=== PATIENT | male | born 1955 | race Two or more races ===

== ENCOUNTER 2024-12-21 05:32 | Inpatient (IN) | payer MEDICARE, OTHER ==
[~2024-12-21] VITALS: Ht 167.6 cm; Wt 71.5 kg
--- NOTE | 2024-12-21 05:46 | ED.PDOC ---
HPI Comments 69 year old male presents to the ED via EMS with a chief complaint of palpitations onset 1 day. Patient was transferred from [facility] due to elevated trop levels, was transferred for further cardiology workup. Patient states he had a triple bypass about 12 years ago. He began experiencing palpitations, sweats, HR was 155, went to [facility] ED. Was on a Heparin drip that was discontinued due to transportation. PMHx CHF. No other symptoms or modifying factors present at this time. Time Seen by MD: 05:40 Reviewed Notes: Medications, Allergies Allergies: Coded Allergies: NO KNOWN ALLERGIES (Unverified , 12/21/24) Information Source: Patient, Emergency Med Personnel Mode of Arrival: EMS Severity: Moderate Timing: Hours Duration: Since onset Prehospital treatment: None Onset: At Rest History of: Similar pain in past Modifying Factors: Nothing Associated Signs and Symptoms: Palpitations Past Medical History PAST MEDICAL HISTORY: CHF Surgical History: CABG Family History Family History: Reviewed,noncontributory to illness, No family hx of Cancer, No family hx of DM, No family hx of Heart aamir, No family hx of HTN, No family hx ofKidney aamir, No family hx of Liver aamir, No family hx of Lung aamir, No family hx of Stroke Social History Smoker: Non-Smoker Alcohol: Denies ETOH Use Drugs: Denies Drug Use Lives In: Home Constitutional: reports: sweats; denies: chills, diaphoresis, fatigue, fever, malaise, weakness, others EENTM: denies: blurred vision, double vision, ear bleeding, ear discharge, ear drainage, ear pain, ear ringing, eye pain, eye redness, hearing loss, mouth pain, mouth swelling, nasal discharge, nose bleeding, nose congestion, nose pain, photophobia, tearing, throat pain, throat swelling, voice changes, others Respiratory: denies: cough, hemoptysis, orthopnea, SOB at rest, shortness of breath, SOB with excertion, stridor, wheezing, others Cardiovascular: reports: others (tachycardia); denies: chest pain, dizzy spells, diaphoresis, Dyspnea on exertion, edema, irregular heart beat, left arm pain, lightheadedness, palpitations, PND, syncope Gastrointestinal: denies: abdomen distended, abdominal pain, blood streaked bowels, constipated, diarrhea, dysphagia, difficulty swallowing, hematemesis, melena, nausea, poor appetite, poor fluid intake, rectal bleeding, rectal pain, vomiting, others Genitourinary: denies: burning, dysuria, flank pain, frequency, hematuria, incontinence, penile discharge, penile sore, pain, testicle pain, testicle swelling, urgency, others Neurological: denies: dizziness, fainting, headache, left sided numbness, left sided weakness, numbness, paresthesia, pre-existing deficit, right sided numbness, right sided weakness, seizure, speech problems, tingling, tremors, weakness, others Musculoskeletal: denies: back pain, gout, joint pain, joint swelling, muscle pain, muscle stiffness, neck pain, others Integumetry: denies: bruises, change in color, change in hair/nails, dryness, laceration, lesions, lumps, rash, wounds, others Allergic/Immunocompromised: denies: Difficulty Healing, Frequent Infections, Hives, Itching, others Hematologic/Lymphatic: denies: anemia, blood clots, easy bleeding, easy bruising, swollen glands, others Endocrine: denies: excessive hunger, excessive sweating, excessive thirst, excessive urination, flushing, intolerance to cold, intolerance to heat, unexplained weight gain, unexplained weight loss, others Psychiatric: denies: anxiety, bipolar disorder, depression, hopeless, panic disorder, schizophrenia, sleepless, suicidal, others All Other Systems: Reviewed and Negative Physical Exam General Appearance: Normal HEENT: Normal ENT Inspection, Pharynx Normal, TMs Normal Neck: Full Range of Motion, Non-Tender, Normal, Normal Inspection Respiratory: Chest Non-Tender, Lungs Clear, No Accessory Muscle Use, No Respiratory Distress, Normal Breath Sounds Cardiovascular: No Edema, No JVD, No Murmur, No Gallop, Normal Peripheral Pulses, Regular Rate/Rhythm Breast Exam: Deferred Gastrointestinal: No Organomegaly, Non Tender, No Pulsatile Mass, Normal Bowel Sounds, Soft Genitalia: Deferred Pelvic: Deferred Rectal: Deferred Extremities: No calf tenderness, Normal capillary refill, Normal inspection, Normal range of motion, Non-tender, No pedal edema Musculoskeletal : Apperance: Normal Neurologic: Alert, edge drummer II-XII nml as Tested, No Motor Deficits, Normal Affect, Normal Mood, No Sensory Deficits Cerebellar Function: Normal Reflexes: Normal Skin: Dry, Normal Color, Warm Lymphatic: No Adenopathy Was a procedure done? Was a procedure done?: No CP Differential Dx Differential Diagnosis: MAT, [place], PAC's Differential Diagnosis: HTN Essential, HTN Accelerated Differential Diagnosis: Myocardial Infarction, Pericarditis X-Ray, Labs, Meds, VS Vital Signs Date Time Temp Pulse Resp B/P (MAP) Pulse Ox O2 Delivery O2 Flow Rate FiO2 12/21/24 08:00 98.1 84 19 121/70 (87) 99 98.1 12/21/24 08:00 84 19 97 Nasal Cannula* 2 28 12/21/24 07:00 87 11 121/70 (87) 98 12/21/24 06:41 87 12/21/24 06:22 91 12/21/24 06:11 91 12/21/24 05:55 93 15 96 Nasal Cannula* 2 28 12/21/24 05:55 98.3 91 15 128/78 (95) 96 98.3 12/21/24 05:50 98.9 88 18 106/70 91 98.9 12/21/24 05:32 87 Lab Test 12/21/24 07:32 12/21/24 06:17 Range/Units Troponin I High Sensitivity 3992 *H 3918 *H </=54 ng/L White Blood Count 12.2 H 4.4-10.8 10^3/uL Red Blood Count 4.26 L 4.5-5.90 10^6/uL Hemoglobin 12.9 L 13.5-17.5 g/dL Hematocrit 37.8 L 41.0-53.0 % Mean Corpuscular Volume 88.7 80.0-100.0 fL Mean Corpuscular Hemoglobin 30.2 28.0-32.0 pg Mean Corpuscular Hemoglobin Concent 34.0 32.0-36.0 g/dL Red Cell Distribution Width 14.7 H 11.8-14.3 % Platelet Count 353 140-450 10^3/uL Mean Platelet Volume 9.2 6.9-10.8 fL Neutrophils (%) (Auto) 73.3 37.0-80.0 % Lymphocytes (%) (Auto) 13.8 10.0-50.0 % Monocytes (%) (Auto) 8.5 0.0-12.0 % Eosinophils (%) (Auto) 3.7 0.0-7.0 % Basophils (%) (Auto) 0.7 0.0-2.0 % Neutrophils # (Auto) 8.9 H 1.6-8.6 10 ^3/uL Lymphocytes # (Auto) 1.7 0.4-5.4 10 ^3/uL Monocytes # (Auto) 1.0 0-1.3 10 ^3/uL Eosinophils # (Auto) 0.5 0-0.8 10 ^3/uL Basophils # (Auto) 0.1 0-0.2 10 ^3/uL Nucleated Red Blood Cells 0.0 % Prothrombin Time 11.8 9.3-11.8 sec Prothrombin Time INR 1.13 0.9-1.15 Activated Partial Thromboplast Time 29.5 24.5-34.5 SEC Sodium Level 136 136-145 mmol/L Potassium Level 3.9 3.5-5.1 mmol/L Chloride Level 104 98-107 mmol/L Carbon Dioxide Level 22 20-31 mmol/L Anion Gap 10 5-15 Blood Urea Nitrogen 24 H 9-23 mg/dL Creatinine 1.90 H 0.700-1.30 mg/dL Glomerular Filtration Rate Calc 38 >90 mL/min BUN/Creatinine Ratio 12.6 10.0-20.0 Serum Glucose 110 H 74-106 mg/dL Calcium Level 8.7 8.7-10.4 mg/dL Current Medications Medications (Trade) Dose Ordered Sig/Allyn Route Start Time Stop Time Status Last Admin Heparin Sodium/ Dextrose 250 ml @ 8 mls/hr Q24H IV 12/21/24 07:15 12/21/24 08:11 Time of 1ST Reevaluation: 06:10 Reevaluation 1ST: Unchanged Patient Education/Counseling: Diagnosis, Treatment, Prognosis Family Education/Counseling: No Family Present SEPSIS Sepsis Screen Physician Orders Chest Portable (12/21/24 05:42) Troponin-I Hs (12/21/24 08:42) Platelet Monitoring (12/21/24 07:05) Heparin Per Standardized Proce (12/21/24 07:05) Discontinue All Im Injections (12/21/24 07:05) Heparin Drip/D5w 100units/Ml (12/21/24 07:15) Stat Ekg For Chest Pain (12/21/24 07:05) Vital Signs Date Time Temp Pulse Resp B/P (MAP) Pulse Ox O2 Delivery O2 Flow Rate FiO2 12/21/24 08:00 98.1 84 19 121/70 (87) 99 98.1 12/21/24 08:00 84 19 97 Nasal Cannula* 2 28 12/21/24 07:00 87 11 121/70 (87) 98 12/21/24 06:41 87 12/21/24 06:22 91 12/21/24 06:11 91 12/21/24 05:55 93 15 96 Nasal Cannula* 2 28 12/21/24 05:55 98.3 91 15 128/78 (95) 96 98.3 12/21/24 05:50 98.9 88 18 106/70 91 98.9 12/21/24 05:32 87 Laboratory Tests Test 12/21/24 06:17 White Blood Count 12.2 10^3/uL (4.4-10.8) H Medications Medications Dose Ordered Sig/Allyn Route Start Time Stop Time Status Last Admin Dose Admin Heparin Sodium/ Dextrose 250 ml @ 8 mls/hr Q24H IV 12/21/24 07:15 12/21/24 08:11 Departure 1 Departure Time of Disposition: 08:51 (Patient presented with chest pain that was concerning for possible STEMI, ACS, PE, Pneumonia, Muscle Strain, COPD, Dissection. Data: 1. I ordered and reviewed the result of at least 3 labs including a CBC, BMP, and Troponin. 2. I independently interpreted the following tests: EKG which shows sinus arrhythmia and Chest X-ray which shows benign chest.Risk:This patient has a high risk of morbidity due to further diagnostic testing or treatment and may suffer from an acute cardiac or respiratory disorder. Workup reveals NSTEMI and patient should be admitted for further workup and possible expert consultation. ) Impression: Primary Impression: Palpitations Additional Impression: NSTEMI (non-ST elevated myocardial infarction) Disposition: ADMITTED INPATIENT Admit to: Tele Condition: Guarded Critical Care Note Critical Care Time?: Yes Critical care comment: NSTEMI Authorized and Performed by: Antonino Whitaker MD Total critical care time: Approximately 39 minutes Due to a high probability of clinically significant, life threatening deterioration, the patient required my highest level of preparedness to intervene emergently and I personally spent this critical care time directly and personally managing the patient. This critical care time included obtaining a history; examining the patient; pulse oximetry; ordering and review of studies; arranging urgent treatment with development of a management plan; evaluation of patient's response to treatment; frequent reassessment; and, discussions with other providers. This critical care time was performed to assess and manage the high probability of imminent, life-threatening deterioration that could result in multi-organ failure. It was exclusive of separately billable procedures and treating other patients and teaching time. Please see my other sections and the rest of the note for further information on patient assessment and treatment. Stability Stability form required: No Heart Score Heart Score: Heart Score Response (Comments) Value History Moderate Suspicious 1 EKG Repolarization Disturb 1 Age >65 2 Risk Factors >3 or Hx ASHD 2 Troponin >3 x's Normal limit 2 Total 8 I personally scribed for ANTONINO WHITAKER MD ([email or web address]) on 12/21/24 at 05:46. Electronically submitted by Isidra Locke ([email or web address]). ANTONINO WHITAKER MD Dec 21, 2024 05:46
[2024-12-21 05:55] VITALS: PULSE 93; RESP 15; O2SAT 96
[2024-12-21 06:45] LABS: Hematocrit 37.8 % (41.0-53.0); Hemoglobin 12.9 g/dL (13.5-17.5); Mean Corpuscular Hemoglobin 30.2 pg (28.0-32.0); Mean Corpuscular Volume 88.7 fL (80.0-100.0); Nucleated Red Blood Cells % 0.0 %
--- NOTE | 2024-12-21 06:52 | ECG ---
[facility] Test Date: 2024-12-21 Test Time: 06:41:22 Pat Name: KLEBER MATHUR Department: [facility] ED Room: 0277T Gender: M Consultant Electronics: ANGELICA : 1955 Requested By: ANTONINO PARKER Order Number: [id number] Reading MD: Cy Lopez Measurements Intervals [place] Rate: 87 P: 45 MT: 178 QRS: 114 QRSD: 140 T: -46 QT: 412 QTc: 496 Interpretive Statements Sinus rhythm Multiple premature complexes, vent & supraven Left atrial enlargement Nonspecific intraventricular conduction delay Anteroseptal infarct, old Minimal ST depression Electronically Signed On 12-22-2024 17:02:27 PDT by Cy Lopez Please click the below link to view image of tracing.
--- NOTE | 2024-12-21 06:52 | ECG ---
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
--- NOTE | 2024-12-21 06:52 | ECG ---
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
[2024-12-21 06:53] LABS: Chloride 104 mmol/L (98-107); Potassium 3.9 mmol/L (3.5-5.1)
[2024-12-21 06:54] LABS: Anion Gap 10 (5-15); Calcium 8.7 mg/dL (8.7-10.4); Carbon Dioxide 22 mmol/L (20-31)
[2024-12-21 06:59] LABS: BUN/Creatinine Ratio 12.6 (10.0-20.0)
[2024-12-21 07:03] LABS: Glucose 110 mg/dL (74-106); Sodium 136 mmol/L (136-145)
--- NOTE | 2024-12-21 07:03 | DVH ---
CHEST RADIOGRAPH Indication: cp Technique: Single frontal view of the chest was obtained Comparison: XR CHEST 1 VIEW on DOS: 12/20/24 FINDINGS: Lines and Tubes: None Lungs: Bilateral interstitial prominence. No focal consolidation. Pleura: No effusion. No pneumothorax. Cardiomediastinal contours: Cardiomegaly. Bones: Age-indeterminate left clavicular fracture. No acute osseous abnormality. Status post median sternotomy. IMPRESSION: 1. Pulmonary vascular congestion. 2. Cardiomegaly.
[2024-12-21 07:05] LABS: Blood Urea Nitrogen 24 mg/dL (9-23); INR 1.13 (0.9-1.15); Partial Thromboplastin Time 29.5 SEC (24.5-34.5); Prothrombin Time 11.8 sec (9.3-11.8)
[2024-12-21 08:00] VITALS: PULSE 84; RESP 19; O2SAT 97
[2024-12-21] MEDS: HEPARIN DRIP/D5W 100UNITS/ML 250 ML IV SCH ×3 (08:11→23:07)
[2024-12-21] MEDS: ONDANSETRON HCL 4 MG/2 ML VIAL IV ONE (09:28)
[2024-12-21] MEDS: MORPHINE SULFATE 4 MG/ML SYR/VIAL IV ONE (09:28)
[2024-12-21] MEDS ORDERED: MET25T PO (10:37)
[2024-12-21] MEDS ORDERED: LISI20TA56 PO (10:37)
[2024-12-21] MEDS ORDERED: FURO20TA4 PO (10:37)
[2024-12-21] MEDS ORDERED: ALBUAER3 INH (10:37)
[2024-12-21] MEDS ORDERED: NICO14DI29 TOP (10:37)
[2024-12-21] MEDS ORDERED: ALLO100T PO (10:37)
[2024-12-21] MEDS ORDERED: DOCUSATE SOD 100 MG CAP PO PRN (10:45)
[2024-12-21] MEDS ORDERED: HYDROcodone-ACET 5/325MG TAB PO PRN (10:45)
[2024-12-21] MEDS ORDERED: NITROGLYCERIN 0.4 MG SL TAB SL PRN (10:45)
[2024-12-21] MEDS ORDERED: MORPHINE SULFATE INJ 2 MG/ml SYRG IV PRN (10:45)
[2024-12-21] MEDS ORDERED: ONDANSETRON HCL 4 MG/2 ML VIAL IV PRN (10:45)
[2024-12-21] MEDS ORDERED: ACETAMINOPHEN 325 MG TAB PO PRN (10:45)
--- NOTE | 2024-12-21 11:26 | DVHHP2 ---
History of Present Illness Reason for Visit: Elevated troponin History of Present Illness Micha Palacios is a 69-year-old male with past medical history of CHF, hypertension, COPD, gout, and open heart surgery about 12 years ago, who was transferred here from [facility] due to elevated troponin, possible NSTEMI. Patient states he was at home when he became diaphoretic, had chest tightness, and pain that radiating to his left arm. He put his home pulse oximeter on and saw that his heart rate was in the 140s. He then took his blood pressure and it showed his heart rate in the 150's prompting him to go to the hospital. While at [facility] his troponin came back elevated prompting them to transfer him here for higher level of care. Cardiovascular: CAD, HTN, hyperipidemia Past Surgical History: Appendectomy, CABG, Other (tumor removal from neck) Smoke: <1 pack per day (trying to quite, wearing a nicotine patch) ALCOHOL: none Drugs: None Lives: with Family Domestic Violence: Neg Review of Systems Constitutional: Yes: Sweats, Weakness; No: Fever, Chills, Malaise, Other Eyes: No: Pain, Vision change, Conjunctivae inflammation, Eyelid inflammation, Other, Redness ENT: No: Ear pain, Ear discharge, Nose pain, Nose discharge, Nose congestion, Mouth pain, Mouth swelling, Throat pain, Throat swelling, Other Respiratory: No: Cough, Dry, Shortness of breath, SOB with excertion, Wheezing, Hemoptysis, Pleuritic Pain, Sputum, Wheezing, Other Cardiovascular: Chest Pain (tightness that radiated to left arm), Palpitations; No: Orthopnea, Paroxysmal Noc. Dyspnea, Edema, Lt Headedness, Other Gastrointestinal: No: Nausea, Vomiting, Abdominal Pain, Diarrhea, Constipation, Melena, Hematochezia, Other Genitourinary: No Dysuria, No Frequency, No Incontinence, No Hematuria, No Retention, No Other Musculoskeletal: No: other, neck pain, shoulder pain, arm pain, back pain, hand pain, leg pain, foot pain Skin: No: Rash, Lesions, Jaundice, Bruising, Other Neurological: No: Weakness, Numbness, Incoordination, Change in speech, Confusion, Seizures, Other Allergies: Coded Allergies: NO KNOWN ALLERGIES (Unverified , 12/21/24) Medications Current Medications Medications Dose Ordered Sig/Allyn Route Start Time Stop Time Status Last Admin Dose Admin Heparin Sodium/ Dextrose 250 ml @ 8 mls/hr Q24H IV 12/21/24 07:15 12/21/24 08:11 8 MLS/HR Sodium Chloride 1,000 ml @ 75 mls/hr [id number] IV 12/21/24 10:45 UNV Acetaminophen/ Hydrocodone Bitart 1 tab Q4HP PRN PO 12/21/24 10:45 UNV Ondansetron HCl 4 mg Q4HP PRN IV 12/21/24 10:45 UNV Docusate Sodium 100 mg BIDPRN PRN PO 12/21/24 10:45 UNV Acetaminophen 650 mg Q6HP PRN PO 12/21/24 10:45 UNV Nitroglycerin 0.4 mg Q5MINP PRN SL 12/21/24 10:45 UNV Morphine Sulfate 2 mg Q30M PRN IV 12/21/24 10:45 UNV Exam Vital Signs Vital Signs Date Time Temp Pulse Resp B/P (MAP) Pulse Ox O2 Delivery O2 Flow Rate FiO2 12/21/24 09:28 90 18 123/103 12/21/24 08:00 98.1 99 98.1 12/21/24 08:00 Nasal Cannula* 2 28 General Appearance: Alert, Oriented X3, Cooperative, mild distress HEENT: Atraumatic, PERRLA Respiratory: Clear to auscultation, Normal air movement Abdominal: Normal bowel sounds, No hepatospenomegaly Extremities: No clubbing, No cyanosis, No edema, Normal pulses, No tenderness/swelling Skin: No rashes, No breakdown, No significant lesion Neuro: Normal gait, Normal speech, Strength at 5/5 X4 ext, Normal tone Psych/Mental Status: Mental status NL, Mood NL Labs/Xrays Labs Test 12/21/24 09:12 12/21/24 06:17 Range/Units Troponin I High Sensitivity 3495 *H </=54 ng/L White Blood Count 12.2 H 4.4-10.8 10^3/uL Red Blood Count 4.26 L 4.5-5.90 10^6/uL Hemoglobin 12.9 L 13.5-17.5 g/dL Hematocrit 37.8 L 41.0-53.0 % Mean Corpuscular Volume 88.7 80.0-100.0 fL Mean Corpuscular Hemoglobin 30.2 28.0-32.0 pg Mean Corpuscular Hemoglobin Concent 34.0 32.0-36.0 g/dL Red Cell Distribution Width 14.7 H 11.8-14.3 % Platelet Count 353 140-450 10^3/uL Mean Platelet Volume 9.2 6.9-10.8 fL Neutrophils (%) (Auto) 73.3 37.0-80.0 % Lymphocytes (%) (Auto) 13.8 10.0-50.0 % Monocytes (%) (Auto) 8.5 0.0-12.0 % Eosinophils (%) (Auto) 3.7 0.0-7.0 % Basophils (%) (Auto) 0.7 0.0-2.0 % Neutrophils # (Auto) 8.9 H 1.6-8.6 10 ^3/uL Lymphocytes # (Auto) 1.7 0.4-5.4 10 ^3/uL Monocytes # (Auto) 1.0 0-1.3 10 ^3/uL Eosinophils # (Auto) 0.5 0-0.8 10 ^3/uL Basophils # (Auto) 0.1 0-0.2 10 ^3/uL Nucleated Red Blood Cells 0.0 % Prothrombin Time 11.8 9.3-11.8 sec Prothrombin Time INR 1.13 0.9-1.15 Activated Partial Thromboplast Time 29.5 24.5-34.5 SEC Sodium Level 136 136-145 mmol/L Potassium Level 3.9 3.5-5.1 mmol/L Chloride Level 104 98-107 mmol/L Carbon Dioxide Level 22 20-31 mmol/L Anion Gap 10 5-15 Blood Urea Nitrogen 24 H 9-23 mg/dL Creatinine 1.90 H 0.700-1.30 mg/dL Glomerular Filtration Rate Calc 38 >90 mL/min BUN/Creatinine Ratio 12.6 10.0-20.0 Serum Glucose 110 H 74-106 mg/dL Calcium Level 8.7 8.7-10.4 mg/dL CHEST RADIOGRAPH FINDINGS: Lines and Tubes: None Lungs: Bilateral interstitial prominence. No focal consolidation. Pleura: No effusion. No pneumothorax. Cardiomediastinal contours: Cardiomegaly. Bones: Age-indeterminate left clavicular fracture. No acute osseous abnormality. Status post median sternotomy. IMPRESSION: 1. Pulmonary vascular congestion. 2. Cardiomegaly. SEPSIS Sepsis Screen Date sepsis recognized/suspect: Dec 21, 2024 Time Sepsis recognized/suspect: 08 Recent Procedure: No On Antibiotic Therapy: Yes Respiratory Rate >20: No Heart Rate >90: No Temp<36 C (96.8 F) or >38.3 C: No SBP <90 or MAP <65 mmHG: No New Acute Mental Status Change: No Is the patient on CPAP, BIPAP,: No Physician Orders Chest Portable (12/21/24 05:42) Platelet Monitoring (12/21/24 07:05) Heparin Per Standardized Proce (12/21/24 07:05) Discontinue All Im Injections (12/21/24 07:05) Heparin Drip/D5w 100units/Ml (12/21/24 07:15) Stat Ekg For Chest Pain (12/21/24 07:05) PTPTT (12/21/24 14:15) * Cardiology Consult (12/21/24 09:58) Admit (12/21/24 10:33) Code Status (12/21/24 10:33) Sodium Chloride 0.9% (12/21/24 10:45) Hydrocodone-Acet 5/325mg Tab (Mentone 5/32 (12/21/24 10:45) Ondansetron Hcl (Zofran) (12/21/24 10:45) Docusate Sodium Capsule (Colace Capsule) (12/21/24 10:45) Complete Blood Count (12/22/24 04:00) Comprehensive Metabolic Panel (12/22/24 04:00) Npo (Nothing By Mouth) Diet (12/21/24 Lunch) Echo 2d Mode Cardiac Dop (12/21/24 10:33) Condition: Critical (12/21/24 10:33) Acetaminophen Tablet (Tylenol Tablet) (12/21/24 10:45) Nitroglycerin Sublingual (Ntrostat Subli (12/21/24 10:45) Morphine Sulfate Injection (12/21/24 10:45) Notify Md Of Changes From Base (12/21/24 10:33) Exchange Consultant For 24 Hours (12/21/24 10:33) Emergency Dysrhythmia Protocol (12/21/24 10:33) Rhythm Strips Once Every Shift (12/21/24 10:33) Oxygen By Nasal Cannula (12/21/24 10:33) Vital Signs Date Time Temp Pulse Resp B/P (MAP) Pulse Ox O2 Delivery O2 Flow Rate FiO2 12/21/24 09:28 90 18 123/103 12/21/24 08:00 87 12/21/24 08:00 98.1 84 19 121/70 (87) 99 98.1 12/21/24 08:00 84 19 97 Nasal Cannula* 2 28 12/21/24 07:00 87 11 121/70 (87) 98 12/21/24 06:41 87 12/21/24 06:22 91 12/21/24 06:11 91 12/21/24 05:55 93 15 96 Nasal Cannula* 2 28 12/21/24 05:55 98.3 91 15 128/78 (95) 96 98.3 12/21/24 05:50 98.9 88 18 106/70 91 98.9 12/21/24 05:32 87 Laboratory Tests Test 12/21/24 06:17 White Blood Count 12.2 10^3/uL (4.4-10.8) H Medications Medications Dose Ordered Sig/Allyn Route Start Time Stop Time Status Last Admin Dose Admin Heparin Sodium/ Dextrose 250 ml @ 8 mls/hr Q24H IV 12/21/24 07:15 12/21/24 08:11 8 MLS/HR Morphine Sulfate 4 mg ONCE ONCE IV 12/21/24 08:45 12/21/24 08:46 DC 12/21/24 09:28 4 MG Ondansetron HCl 4 mg ONCE ONCE IV 12/21/24 08:45 12/21/24 08:46 DC 12/21/24 09:28 4 MG Assessment/Plan Assessment/Plan Assessment: NSTEMI (non-ST elevated myocardial infarction), Elevated troponin, Palpitations, Dehydration, Acute kidney injury, Hypertension, Gout, COPD, Plan: Admit to Tele, Cardiology consult, ECHO, Heparin drip, Lipid panel, A1c, TSH, ASA, Patient refuses statin, Home medications reconciled, Plan discussed with: Patient My Orders Orders - SUKHDEV WHIPPLE Procedure Category Date Status Time * Cardiology Consult CONS 12/21/24 Transmitted 09:58 Admit ADMIT 12/21/24 Transmitted 10:33 Code Status CODE 12/21/24 Transmitted 10:33 Sodium Chloride 0.9% PHA 12/21/24 Logged 10:45 Hydrocodone-Acet PHA 12/21/24 Logged 5/325mg Tab (Mentone 10:45 Ondansetron Hcl PHA 12/21/24 Logged (Zofran) 10:45 Docusate Sodium PHA 12/21/24 Logged Capsule (Colace 10:45 Complete Blood Count LAB 12/22/24 Verified 04:00 Comprehensive LAB 12/22/24 Verified Metabolic Panel 04:00 Npo (Nothing By DIET 12/21/24 Transmitted Mouth) Diet Lunch Echo 2d Mode Cardiac US 12/21/24 Logged DOP 10:33 Condition: Critical [facility] 12/21/24 In Process 10:33 Acetaminophen Tablet PHA 12/21/24 Logged (Tylenol Tablet) 10:45 Nitroglycerin PHA 12/21/24 Logged Sublingual (Ntrostat 10:45 Morphine Sulfate PHA 12/21/24 Logged Injection 10:45 Notify Md Of Changes KELSI 12/21/24 In Process From Base 10:33 Exchange Consultant For [facility] 12/21/24 In Process 24 Hours 10:33 Emergency Dysrhythmia [facility] 12/21/24 In Process Protocol 10:33 Rhythm Strips Once [facility] 12/21/24 In Process Every Shift 10:33 Oxygen By Nasal RT 12/21/24 Transmitted Cannula 10:33 Date of Service: Dec 21, 2024 Billing Provider: SUKHDEV WHIPPLE Common Visit Codes: [id number] INP/OBS CARE (HIGH) SUKHDEV WHIPPLE Dec 21, 2024 11:26
[2024-12-21 12:05] LABS: Triglycerides 121 mg/dL (< 150)
--- NOTE | 2024-12-21 12:06 | DVHINCON2 ---
Date of service: Dec 21, 2024 History of Present Illness HPI Patient is 69 year old male who was transferred from [facility] for abnormal troponin. He started feeling palpitation that did not resolve on itself and presented to [facility]. Denies any chest pain. While in [facility], Troponin (regular type) increased from 1.33 to 2.56. His EKG over there revealed tachyarrhythmia (SVT with Abberancy Vs V-tach). In [facility], BNP was at 831, Creat was 2.2, Na was 129 and WBC was 12.9. It is of note that he was in [facility] (hospital) at end of November for Bowel obstruction / Diverticulitis. [facility] abnormal Trop[facility]. While in [facility] at end of November, Echocardiogram of 12/14/2024 revealed LVEF of 20%, severely dilated LV and reduced RV systolic function. In December 16 ([facility] admission), Creat was 1.66 (down from 2.21) and GFR was 44 (up from 31). Home Meds Reported Medications Allopurinol (Allopurinol) 100 Mg Tab, 1 TAB PO DAILY 12/21/24 Nicotine (Nicotine Transdermal Syst) 14 Mg/24 Hr Dis, 1 PATCH TOP DAILY 12/21/24 Metoprolol Tartrate (Lopressor) 25 Mg Tb, 25 MG PO BID 12/21/24 Albuterol Sulfate (VENTOLIN MDI) 90 Mcg Ih, INH 12/21/24 Furosemide (Furosemide) 20 Mg Tab, 1 TAB PO DAILY 12/21/24 Lisinopril (Lisinopril) 20 Mg Tab, 1 TAB PO BID 12/21/24 Past Medical History Others PMH includes: CAD, s/p CABG (over 10 years ago), Systolic CHF, COPD/Emphysema, DM, hypertension, Hyperlipidemia, CKD, PVD and history of non-compliance. He is active cigarette smoker. Does have recent diagnosis of Bowel Obstruction/Diverticulitis. Past Surgical History: CABG Smoker: Positive Alocohol: None Lives with: With family Review of Systems Constitutional: No symptom reported Ears, Nose, & Throat: No symptom reported Pulmonary/Respiratory: Dyspnea Cardiovascular: Palpitations All Other Systems 14 point review of system was performed. Relevant findings as per above and as per HPI. Otherwise, negative H&P Exam Vital Signs Vital Signs Date Time Temp Pulse Resp B/P (MAP) Pulse Ox O2 Delivery O2 Flow Rate FiO2 12/21/24 10:40 88 15 114/64 12/21/24 08:00 98.1 99 98.1 12/21/24 08:00 Nasal Cannula* 2 28 General Appeara: Well developed Eye Exam: bilateral eye PERRL Mouth: Normal Inspection Pulmonary/Respiratory: Rhonci Cardiovascular/Chest: Normal inspection, Regular rate, Systolic murmur Abdominal Exam: Normal bowel sounds, Soft, No tenderness Neuro/Mental St: Alert, Oriented Appearance: Appropriate appearance Eye contact/ Speech: Cooperative Labs/Xrays Labs Test 12/21/24 09:12 12/21/24 06:17 Range/Units Troponin I High Sensitivity 3495 *H </=54 ng/L Thyroid Stimulating Hormone (TSH) 2.85 0.55-4.78 uIU/mL White Blood Count 12.2 H 4.4-10.8 10^3/uL Red Blood Count 4.26 L 4.5-5.90 10^6/uL Hemoglobin 12.9 L 13.5-17.5 g/dL Hematocrit 37.8 L 41.0-53.0 % Mean Corpuscular Volume 88.7 80.0-100.0 fL Mean Corpuscular Hemoglobin 30.2 28.0-32.0 pg Mean Corpuscular Hemoglobin Concent 34.0 32.0-36.0 g/dL Red Cell Distribution Width 14.7 H 11.8-14.3 % Platelet Count 353 140-450 10^3/uL Mean Platelet Volume 9.2 6.9-10.8 fL Neutrophils (%) (Auto) 73.3 37.0-80.0 % Lymphocytes (%) (Auto) 13.8 10.0-50.0 % Monocytes (%) (Auto) 8.5 0.0-12.0 % Eosinophils (%) (Auto) 3.7 0.0-7.0 % Basophils (%) (Auto) 0.7 0.0-2.0 % Neutrophils # (Auto) 8.9 H 1.6-8.6 10 ^3/uL Lymphocytes # (Auto) 1.7 0.4-5.4 10 ^3/uL Monocytes # (Auto) 1.0 0-1.3 10 ^3/uL Eosinophils # (Auto) 0.5 0-0.8 10 ^3/uL Basophils # (Auto) 0.1 0-0.2 10 ^3/uL Nucleated Red Blood Cells 0.0 % Prothrombin Time 11.8 9.3-11.8 sec Prothrombin Time INR 1.13 0.9-1.15 Activated Partial Thromboplast Time 29.5 24.5-34.5 SEC Sodium Level 136 136-145 mmol/L Potassium Level 3.9 3.5-5.1 mmol/L Chloride Level 104 98-107 mmol/L Carbon Dioxide Level 22 20-31 mmol/L Anion Gap 10 5-15 Blood Urea Nitrogen 24 H 9-23 mg/dL Creatinine 1.90 H 0.700-1.30 mg/dL Glomerular Filtration Rate Calc 38 >90 mL/min BUN/Creatinine Ratio 12.6 10.0-20.0 Serum Glucose 110 H 74-106 mg/dL Hemoglobin A1c < 3.8 <5.7 % A1C Calcium Level 8.7 8.7-10.4 mg/dL Assessment/Plan Plan Patient is 69 year old male who was transferred from [facility] for abnormal troponin. He started feeling palpitation that did not resolve on itself and presented to [facility]. Denies any chest pain. While in [facility], Troponin (regular type) increased from 1.33 to 2.56. His EKG over there revealed tachyarrhythmia (SVT with Abberancy Vs V-tach). In [facility], BNP was at 831, Creat was 2.2, Na was 129 and WBC was 12.9. It is of note that he was in [facility] (hospital) at end of November for Bowel obstruction / Diverticulitis. [facility] abnormal Trop[facility]. While in [facility] at end of November, Echocardiogram of 12/14/2024 revealed LVEF of 20%, severely dilated LV and reduced RV systolic function. In December 16 ([facility] admission), Creat was 1.66 (down from 2.21) and GFR was 44 (up from 31). Not in acute distress, No JVD, pink mucosa, no Goiter, no Carotid Bruit, not using accessory muscles of breathing. Lungs are clear in auscultation. Cardiac: RR, systolic murmur: 3 out of 6 in apex, positive S3 gallop, no Hepatomegaly, BS is positive, no abdominal tenderness, no mass. No peripheral edema. I could not feel femoral pulses bilaterally, pink and warm bilateral lower ext PMH includes: CAD, s/p CABG (over 10 years ago), Systolic CHF, COPD/Emphysema, DM, hypertension, Hyperlipidemia, CKD, PVD and history of non-compliance. He is active cigarette smoker. Does have recent diagnosis of Bowel Obstruction/Diverticulitis. Echocardiogram (performed in office) of revealed severely reduced left ventricular systolic function and mild valvular regurgitations. Echocardiogram of 12/14/2024 (performed in [facility]) revealed LVEF of 20%, severely dilated LV and reduced RV systolic function WBC: 12.2 Hgb: 12.9 Creat: 1.85 - 1.90 K: 4.9 - 3.9 Trop (high sensitive): 3586 - 3918 - 3992 - 3495 BNP: 1193.40 - 960.28 TSH: 2.85 LDL: 61 chest xry revealed: IMPRESSION: 1. Pulmonary vascular congestion. 2. Cardiomegaly. Renal Ultrasound revealed: IMPRESSION: Multiple echogenic foci in the left kidney measures up to 0.4 cm suggestive of left renal stones. Echogenic bilateral kidneys suggestive of chronic medical renal disease. No hydronephrosis. EKG: NSR, IVCD, Poor R wave progression, LAE and PVCs Tele revealed sinus rhythm with occasion of NSVT Patient is 69 year old male who was transferred from [facility] for abnormal trop. Originally presented to [facility] for palpitation. High sensitive trop peaked at 3992. Did have Tachyarrhythmia in [place] (SVT with Abberancy Vs NSVT: images more compatible with SVT) which could have contributed to clinical picture. Does have history of CAD and has had CABG before. Does have history of systolic heart failure. Did not have chest pains. Could it have been demand physiology in patient with systolic heart failure? Could it be demand physiology in patient with tachyarrhythmia? Still, the Troponin peak has been large enough that type 1 physiology is also very likely. Usually in such presentation with above risk factors and history (CAD, s/p CABG), ischemic work up (cardiac catheterization) is considered. Cardiac Catheterization was offered to patient. It is true that patient does have baseline CKD and risk of Cardiac cath to adversely affect kidneys in patients with baseline CKD is more, still, recognizing co-morbidities and risk factors, benefit of ischemic work up is considered more than the risks. Patient verbalized understanding the above (he sounds very well versed with medical terminology also and was asking about his actual troponin number, troponin peak, his creat number, his GFR) and the risks involved with proceeding with or holding off cardiac catheterization. Risks, benefits and alternatives were discussed in detail. At this point, he refused the offer of Cardiac Cath and mentioned that he really is concerned about his kidney function. Does have history of PAD, Emphysema/COPD, DM, hypertension, Hyperlipidemia and non-compliance. Tachyarrhythmia NSVT SVT Abnormal trop Non-stemi CKD CAD s/p CABG PAD DM Active cigarette smoker Hypertension Hyperlipidemia Kidney stone Cardiac suggestion for management: Manage in Tele Follow up electrolytes and kidney function test and correct abnormalities Heparin Drip ASA High potency statin Serial Troponin Echocardiogram Beta-trevor (Metoprolol tartrate at 25 mg TID) Amiodarone Bladder ultrasound U/A Nephrology consultation Further evaluation and management as per above and clinical course Thank you for consultation. A total of 75 minutes was spent reviewing the patient record, examining the patient, making a diagnostic and therapeutic plan, discussing this plan with medical personnel, following up on diagnostic studies and following the patient for clinical stability excluding any and all procedures. At least 50% of this time was spent in direct, [id number] contact. Thank you for allowing me to participate in this patient's care. Further recommendations will depend on patient's clinical course. Please do not hesitate to contact me if you have any questions or concerns. This medical document was created using electronic medical record system with [employer] computerized dictation system. Although this document has been carefully reviewed, there may still be some phonetic and typographical errors. These areas are purely typographical due to the imperfection of the software programs, and do not reflect any compromise in the patient's medical care. Plan discussed with: Patient, Other (nurse) NATALIA STEVENSON MD Dec 21, 2024 12:06
[2024-12-21 12:07] LABS: Cholesterol 107 mg/dL (< 200)
[2024-12-21 12:39] LABS: HDL Cholesterol 20 mg/dL (40-59)
[2024-12-21 13:15] LABS: Alanine Aminotransferase 12 U/L (7-40); Alkaline Phosphatase 89 U/L (46-116); Anion Gap 7 (5-15); BUN/Creatinine Ratio 15.7 (10.0-20.0); Calcium 9.1 mg/dL (8.7-10.4); Carbon Dioxide 26 mmol/L (20-31); Chloride 104 mmol/L (98-107); Potassium 4.9 mmol/L (3.5-5.1); Sodium 137 mmol/L (136-145); Total Protein 6.4 g/dL (5.7-8.2)
[2024-12-21 13:16] LABS: Albumin 4.0 g/dL (3.2-4.8)
[2024-12-21 13:17] LABS: Bilirubin, Total 0.3 mg/dL (0.2-1.0)
[2024-12-21 13:34] LABS: Blood Urea Nitrogen 29 mg/dL (9-23); Glucose 140 mg/dL (74-106)
[2024-12-21] MEDS: SODIUM CHLORIDE 0.9% 1,000 ML IV SCH (13:42)
[2024-12-21] MEDS: METOPROLOL TARTRATE 25 MG TAB PO SCH (14:00)
--- NOTE | 2024-12-21 14:16 | DVH ---
INDICATION: Pain TECHNIQUE: Multiple real-time sonographic images of the kidneys and bladder were obtained. COMPARISON: None FINDINGS: The right kidney measures 9 cm in length, which is normal in size. There is increased echog enicity of the right kidney. No hydronephrosis. The left kidney measures 9.7 cm in length, which is normal in size. There is increased echogenicity o f the left kidney. No hydronephrosis. Multiple echogenic foci in the left kidney measures up to 0.4 c m suggestive of left renal stones. No large intraluminal masses are seen in the bladder. Prior to voiding the bladder volume measures vo lume 452 cc. IMPRESSION: Multiple echogenic foci in the left kidney measures up to 0.4 cm suggestive of left renal stones. Ech ogenic bilateral kidneys suggestive of chronic medical renal disease. No hydronephrosis.
[2024-12-21 14:28] LABS: INR 1.08 (0.9-1.15); Partial Thromboplastin Time 29.8 SEC (24.5-34.5); Prothrombin Time 11.4 sec (9.3-11.8)
[2024-12-21] MEDS: HEPARIN SODIUM (PORCINE) 5000 UNITS/ML 1ML VIAL IV ONE ×2 (15:38→23:05)
[2024-12-21] MEDS: NICOTINE 14 MG/24HR TOPICAL PATCH TD SCH (15:58)
[2024-12-21] MEDS: NICOTINE 14 MG/24HR TOPICAL PATCH TD ONE (16:00)
--- NOTE | 2024-12-21 16:23 | CONS ---
Pharmacy Clinical Information: HEPARIN DRIP PER RX PROTOCOL SPOKE TO RN JULY REGARDING TO HEPARIN DRIP RATE CHANGE CURRENT HEPARIN DRIP RATE 800 UNITS/HR CURRENT aPTT: 29.8 ON 12/21/2024 AT 14:05 BOLUS: 5000 UNITS IVP X1 INCREASE HEPARIN DRIP RATE (NEW RATE) 1100 UNITS/HR DATE AND TIME NEW RATE STARTED: 12/21/2024 AT 15:41 NEXT aPTT: 12/21/2024 AT 2145 RN JULY READ BACK NEW DOSE: 1100 UNITS/HR KIRBY Busby Dec 21, 2024 16:23
--- NOTE | 2024-12-21 16:59 | DVHCONRES ---
Date Seen: Dec 21, 2024 Resident Creating Document: FRANCES CARTAGENA RESIDENT History of Present Illness 69-year-old male patient and past medical history of CHF, hypertension, CKD, unknown baseline function presented as he was transferred here from [facility] due to elevated troponin, possible NSTEMI. Patient states he was at home when he became diaphoretic, had chest tightness, and pain that radiating to his left arm. He put his home pulse oximeter on and saw that his heart rate was in the 140s. On presenting to the ER, cardiology was consulted and patient refused left heart catheterization as recommended by driller multiple spindle. Patient had elevated creatinine levels and Nephrology was consulted for HIRAL. Patient mentioned that his baseline GFR was 65 seven years ago but does not remember the current GFR. Patient was told by one of the doctors to drink more fluids which patient has been drinking. Patient mentioned that he does not take any antiplatelet therapy including aspirin and Plavix. Patient is currently on oxygen at 2 L nasal cannula. Past medical history CHF, hypertension, CKD, unknown baseline function Past surgical history CABG Medication history Lisinopril Metoprolol Atorvastatin Allergic history No known allergies Past Medical History As described in the HPI Past Surgical History As described in the HPI Social History current smoker Allergies: Coded Allergies: NO KNOWN ALLERGIES (Unverified , 12/21/24) Home Meds Reported Medications Allopurinol (Allopurinol) 100 Mg Tab, 1 TAB PO DAILY 12/21/24 Nicotine (Nicotine Transdermal Syst) 14 Mg/24 Hr Dis, 1 PATCH TOP DAILY 12/21/24 Metoprolol Tartrate (Lopressor) 25 Mg Tb, 25 MG PO BID 12/21/24 Albuterol Sulfate (VENTOLIN MDI) 90 Mcg Ih, INH 12/21/24 Furosemide (Furosemide) 20 Mg Tab, 1 TAB PO DAILY 12/21/24 Lisinopril (Lisinopril) 20 Mg Tab, 1 TAB PO BID 12/21/24 Current Medications Current Medications Medications (Trade) Dose Ordered Sig/Allyn Route PRN Reason Start Time Stop Time Status Last Admin Heparin Sodium/ Dextrose 250 ml @ 8 mls/hr Q24H IV 12/21/24 07:15 12/21/24 15:25 DC 12/21/24 08:11 Sodium Chloride 1,000 ml @ 75 mls/hr [id number] IV 12/21/24 10:45 12/21/24 14:34 DC Acetaminophen/ Hydrocodone Bitart ([place] 5/325MG Tab) 1 tab Q4HP PRN PO MODERATE PAIN (4-6 PAIN SCALE) 12/21/24 10:45 Ondansetron HCl (Zofran) 4 mg Q4HP PRN IV NAUSEA / VOMITING 12/21/24 10:45 Docusate Sodium (Colace Capsule) 100 mg BIDPRN PRN PO FOR CONSTIPATION 12/21/24 10:45 Acetaminophen (Tylenol Tablet) 650 mg Q6HP PRN PO PAIN SCALE 1-3 OR TEMP>100.4 12/21/24 10:45 Nitroglycerin (Ntrostat Sublingual) 0.4 mg Q5MINP PRN SL FOR CHEST PAIN 12/21/24 10:45 Morphine Sulfate 2 mg Q30M PRN IV FOR CHEST PAIN 12/21/24 10:45 Allopurinol (Zyloprim Tablet) 100 mg DAILY PO 12/22/24 10:00 Furosemide (Lasix Tablet) 20 mg DAILY PO 12/22/24 10:00 12/21/24 14:34 DC Lisinopril (Zestril Tablet) 20 mg BID PO 12/21/24 22:00 12/21/24 14:34 DC Metoprolol Tartrate (Lopressor Tablet) 25 mg BID PO 12/21/24 22:00 Cancel Nicotine (Nicoderm 14MG/ 24HR) 1 patch DAILY TD 12/22/24 10:00 12/21/24 15:58 Aspirin 81 mg DAILY PO 12/22/24 10:00 Amiodarone HCl (Cordarone Tablet) 200 mg Q12HR PO 12/21/24 22:00 UNV Aspirin 81 mg DAILY PO 12/22/24 10:00 UNV Atorvastatin Calcium (Lipitor) 80 mg HS PO 12/21/24 22:00 Metoprolol Tartrate (Lopressor Tablet) 25 mg TID PO 12/21/24 14:00 Amiodarone HCl (Cordarone Tablet) 200 mg BID PO 12/21/24 22:00 Furosemide (Lasix Injection) 40 mg BIDD IV 12/21/24 18:00 Heparin Sodium/ Dextrose 250 ml @ 11 mls/hr [id number] IV 12/21/24 15:30 12/21/24 15:41 Review of Systems As described in the HPI Vital Signs Vital Signs Date Time Temp Pulse Resp B/P (MAP) Pulse Ox O2 Delivery O2 Flow Rate FiO2 12/21/24 16:30 Nasal Cannula* 2 28 12/21/24 16:30 83 13 106/59 (75) 94 12/21/24 08:00 98.1 98.1 Physical Exam Examination General Appearance: Alert, Oriented X3, Cooperative, No acute distress, on oxygen 2 L nasal cannula HEENT: EOMI Respiratory: Clear to auscultation, Normal air movement Cardiovascular: Regular rate, Normal S1, Normal S2, bilateral crackles, scattered wheezing, pedal edema Abdominal: Normal bowel sounds Extremities: No cyanosis, No edema, Normal pulses, No tenderness/swelling Skin: No rashes, No breakdown Neuro: Normal gait, Normal speech, Strength at 5/5 X4 ext, Normal tone, Sensation intact, Cranial nerves 3-12 NL, Reflexes 2+ Psych/Mental Status: Mental status NL, Mood NL Labs/Diagnostic Data Labs Test 12/21/24 14:05 12/21/24 09:12 12/21/24 06:17 12/21/24 00:00 Range/Units Prothrombin Time 11.4 9.3-11.8 sec Prothrombin Time INR 1.08 0.9-1.15 Activated Partial Thromboplast Time 29.8 24.5-34.5 SEC Troponin I High Sensitivity 3495 *H </=54 ng/L Triglycerides Level 121 < 150 mg/dL Cholesterol Level 107 < 200 mg/dL LDL Cholesterol 61 < 100 mg/dL HDL Cholesterol 20 L 40-59 mg/dL Thyroid Stimulating Hormone (TSH) 2.85 0.55-4.78 uIU/mL White Blood Count 12.2 H 4.4-10.8 10^3/uL Red Blood Count 4.26 L 4.5-5.90 10^6/uL Hemoglobin 12.9 L 13.5-17.5 g/dL Hematocrit 37.8 L 41.0-53.0 % Mean Corpuscular Volume 88.7 80.0-100.0 fL Mean Corpuscular Hemoglobin 30.2 28.0-32.0 pg Mean Corpuscular Hemoglobin Concent 34.0 32.0-36.0 g/dL Red Cell Distribution Width 14.7 H 11.8-14.3 % Platelet Count 353 140-450 10^3/uL Mean Platelet Volume 9.2 6.9-10.8 fL Neutrophils (%) (Auto) 73.3 37.0-80.0 % Lymphocytes (%) (Auto) 13.8 10.0-50.0 % Monocytes (%) (Auto) 8.5 0.0-12.0 % Eosinophils (%) (Auto) 3.7 0.0-7.0 % Basophils (%) (Auto) 0.7 0.0-2.0 % Neutrophils # (Auto) 8.9 H 1.6-8.6 10 ^3/uL Lymphocytes # (Auto) 1.7 0.4-5.4 10 ^3/uL Monocytes # (Auto) 1.0 0-1.3 10 ^3/uL Eosinophils # (Auto) 0.5 0-0.8 10 ^3/uL Basophils # (Auto) 0.1 0-0.2 10 ^3/uL Nucleated Red Blood Cells 0.0 % Sodium Level 136 136-145 mmol/L Potassium Level 3.9 3.5-5.1 mmol/L Chloride Level 104 98-107 mmol/L Carbon Dioxide Level 22 20-31 mmol/L Anion Gap 10 5-15 Blood Urea Nitrogen 24 H 9-23 mg/dL Creatinine 1.90 H 0.700-1.30 mg/dL Glomerular Filtration Rate Calc 38 >90 mL/min BUN/Creatinine Ratio 12.6 10.0-20.0 Serum Glucose 110 H 74-106 mg/dL Hemoglobin A1c < 3.8 <5.7 % A1C Calcium Level 8.7 8.7-10.4 mg/dL B-Type Natriuretic Peptide 960.28 0-100 pg/mL Total Bilirubin 0.3 0.2-1.0 mg/dL Aspartate Amino Transferase (AST) 35 13-40 U/L Alanine Aminotransferase (ALT) 12 7-40 U/L Alkaline Phosphatase 89 46-116 U/L Total Protein 6.4 5.7-8.2 g/dL Albumin 4.0 3.2-4.8 g/dL Assessment Assessment / Plan # HIRAL on CKD, hemodynamically mediated , likely due to CHF exacerbation, ?com ponent of bladder outlet obstruction -Renal USG : Multiple echogenic foci in the left kidney measures up to 0.4 cm suggestive of left renal stones. Echogenic bilateral kidneys suggestive of chronic medical renal disease. No hydronephrosis. -unknown baseline kidney function # BPH # left Renal stone # NSTEMI # Acute HfrEF Exacerbation # Constipation # Diverticular disease # hypertension # COPD # gout # CAD s/p CABG Plan/Recommendation Plan Monitor Kidney Function, and electrolytes Strict I and O urine studies ordered, including urine sodium, urine creatinine, urine prot/creatinine ration Insert Salazar catheter if Bladder residual volume post voiding is > 180ml , for component of MARC causing HIRAL Discontinued IV fluids, will start on diuresis with IV Lasix 40mg BID as patient is volume overloaded. hold SACHIN-/ARB and other nephrotoxic agents pt mentioned he has not been on any antiplatelet therapy for a long time and did not want LHC done in the hospital and neither wants any medical therapy for NSTEMI/CAD pt was explained in detail about risk of contrast induced nephropathy including possible need for HD post procedure, risks/benefits of Left heart Catheterization, risk of worsening kidney function if pt does not opt for either LHC or medical therapy. pt mentioned that he wants to do his own research before taking any decision. continue Management of NSTEMI as per Cardiology. pt would need outpatient follow up with Nephrology after discharge Case discussion with Dr Martin. Plan discussed with: Patient, Other ADDENDUM ADDENDUM Agree with resident assessment We had extensive discussion with patient and family at bedside we discussed his lack of medical followup and noncompliance with medications particularly cardiac meds. We discussed his risk of contrast induced nephropathy. Upon eval risk was mod- high risk. We discussed following cardiology recommendations to optimize his condition. Patient is some medical knowledge based on independent research and is mistrustful of pharmaceuticals. Plan as follows PVR, flomax lasix IV, no IVF heparin drip if GFR improved above 35% then ischemic w/u benefits are better than renal risks FRANCES CARTAGENA RESIDENT Dec 21, 2024 16:59 LLUVIA MARTIN MD Dec 22, 2024 08:58
--- NOTE | 2024-12-21 17:47 | DVH ---
EXAM: US BLADDER DATE OF SERVICE: 12/21/2024 05:14 PM ORDERING PHYSICIAN: SUKHDEV WHIPPLE REASON FOR EXAM: abnormal kidney function, kidney stone TECHNIQUE: Ultrasound of the bladder was performed. COMPARISON: US KIDNEY on DOS: 12/21/24, CT ABDOMEN PELVIS WITHOUT on DOS: 09/07/24, CT ABDOMEN PELVIS WI TH on DOS: 01/31/22 FINDINGS: The bladder volume of 683 ml. No focal wall thickening is seen. There is no intraluminal mass or sto ne. IMPRESSION: Distended bladder with volume = 683ML End of Report
[2024-12-21 17:59] VITALS: RESP 18; O2SAT 94
[2024-12-21 18:01] VITALS: BP 126/70; PULSE 88; RESP 18; TEMP 98.1; O2SAT 92
[2024-12-21] MEDS: FUROSEMIDE 40 MG/4 ML VIAL IV SCH (18:52)
[2024-12-21 20:30] VITALS: PULSE 87; RESP 18; O2SAT 94
[2024-12-21 21:00] VITALS: BP 122/59; PULSE 89; RESP 17; TEMP 98; O2SAT 94
[2024-12-21] MEDS: AMIODARONE HCL 200 MG TAB PO SCH (22:00)
[2024-12-21] MEDS ORDERED: AMIODARONE HCL 200 MG TAB PO SCH (22:00)
[2024-12-21] MEDS ORDERED: LISINOPRIL 20 MG TAB PO SCH (22:00)
[2024-12-21] MEDS ORDERED: METOPROLOL TARTRATE 25 MG TAB PO SCH (22:00)
[2024-12-21] MEDS: ATORVASTATIN 20 MG TAB PO SCH (22:00)
[2024-12-21 22:31] LABS: INR 1.11 (0.9-1.15); Partial Thromboplastin Time 33.5 SEC (24.5-34.5); Prothrombin Time 11.6 sec (9.3-11.8)
[2024-12-22 03:02] LABS: Urine Protein, UAD Negative (Negative)
[2024-12-22 04:14] LABS: Protein, Urine 8.7 mg/dL (1-14)
[2024-12-22 06:51] LABS: Hematocrit 38.1 % (41.0-53.0); Hemoglobin 12.7 g/dL (13.5-17.5); Mean Corpuscular Hemoglobin 30.0 pg (28.0-32.0); Mean Corpuscular Volume 89.7 fL (80.0-100.0); Nucleated Red Blood Cells % 0.0 %
[2024-12-22 07:00] LABS: Alkaline Phosphatase 75 U/L (46-116); Anion Gap 8 (5-15); BUN/Creatinine Ratio 14.9 (10.0-20.0); Carbon Dioxide 25 mmol/L (20-31); Chloride 107 mmol/L (98-107); Glucose 106 mg/dL (74-106); Magnesium 2.0 mg/dL (1.6-2.6); Potassium 3.9 mmol/L (3.5-5.1); Sodium 140 mmol/L (136-145); Total Protein 5.8 g/dL (5.7-8.2)
[2024-12-22 07:01] LABS: Albumin 3.5 g/dL (3.2-4.8)
[2024-12-22 07:02] LABS: Alanine Aminotransferase < 9 U/L (7-40); Bilirubin, Total 0.3 mg/dL (0.2-1.0); Blood Urea Nitrogen 25 mg/dL (9-23); Calcium 8.6 mg/dL (8.7-10.4)
[2024-12-22 07:09] LABS: INR 1.13 (0.9-1.15); Prothrombin Time 11.8 sec (9.3-11.8)
[2024-12-22 07:13] LABS: Partial Thromboplastin Time 100.2 SEC (24.5-34.5)
--- NOTE | 2024-12-22 07:51 | DVHSR ---
APPROVED REPORT EXAM: Two-dimensional and M-mode echocardiogram with Doppler and color Doppler. Blood Pressure: 123/103 mmHg INDICATION NSTEMI Surgery/Intervention CABG: RISK FACTORS Height: 5' 5", Weight: 149 DIMENSIONS LVDd6.8 (3.8-5.7cm)LA (2D)4.4 (1.9-4.0cm)Aortic Root3.5 (2.0-3.7cm) LVDs6.7 (2.5-4.0cm)LA (MM) (1.9-4.0cm)Aortic Cusp Exc1.3 (1.5-2.0cm) EF (%) 5.0 (55-70%)Rt. Atrium4.6 (1.9-4.0cm)Asc. Aorta cm IVSd1.1 (0.7-1.1cm)RV (D) (1.8-2.4cm) PWd1.0 (0.7-1.1cm) Mitral Valve MitralMitral Stenosis E wave1.20m/sMV Mean GR.mmHg A wave0.70m/sMV Peak GR.mmHg E/A ratio1.72D MVAcm2 Aortic Valve Aortic ValveAortic Stenosis V10.40m/Selvin Mean GR.5mmHg V21.60m/Selvin Peak GR.10mmHg LVOT Diameter2.3 (1.8-2.4cm)Doppler AVA1.04cm2 AI P 1/2 Pltg060.98ms Pulmonic Valve V20.40m/s Conclusion Four-chamber dilatation was observed. Left ventricle: Left ventricle was dilated with reduced systolic function. LVEF was 5-10%. Diffuse hypokinesis with regional variation was observed. Pseudo normal left ventricular diastolic function was observed. Right ventricle was dilated with reduced systolic function. Both atria were dilated. Aortic valve: Aortic valve was not well visualized. Mild aortic insufficiency was seen. There was aortic sclerosis with no stenosis. There was trace mitral/tricuspid regurgitation. Pulmonary valve was not well visualized. As there was no good tricuspid regurgitation jet, right ventricular systolic pressure could not be es timated. There was no pericardial effusion. IVC was dilated.
[2024-12-22 08:00] VITALS: PULSE 91; PULSE 96; RESP 18; O2SAT 92
--- NOTE | 2024-12-22 08:14 | DVHPN2 ---
Progress Note - Dictate Date Seen: Dec 22, 2024 Medical Necessity Reason Pt with a Central, PICC or Fol: No vital signs Vital Sign Date Time Temp Pulse Resp B/P (MAP) Pulse Ox O2 Delivery O2 Flow Rate FiO2 12/21/24 22:00 89 122/59 12/21/24 21:00 98.0 17 94 98.0 12/21/24 20:30 Nasal Cannula* 2 28 Total Intake and Output 12/21/24 12/21/24 12/22/24 15:00 23:00 07:00 Intake Total 8 ml 1238 ml Output Total 1140 ml Balance 8 ml 98 ml medications Current Medications Medications Dose Ordered Sig/Allyn Route Start Time Stop Time Status Last Admin Dose Admin Acetaminophen/ Hydrocodone Bitart 1 tab Q4HP PRN PO 12/21/24 10:45 Ondansetron HCl 4 mg Q4HP PRN IV 12/21/24 10:45 Docusate Sodium 100 mg BIDPRN PRN PO 12/21/24 10:45 Acetaminophen 650 mg Q6HP PRN PO 12/21/24 10:45 Nitroglycerin 0.4 mg Q5MINP PRN SL 12/21/24 10:45 Morphine Sulfate 2 mg Q30M PRN IV 12/21/24 10:45 Allopurinol 100 mg DAILY PO 12/22/24 10:00 Metoprolol Tartrate 25 mg BID PO 12/21/24 22:00 Cancel Nicotine 1 patch DAILY TD 12/22/24 10:00 12/21/24 15:58 1 PATCH Aspirin 81 mg DAILY PO 12/22/24 10:00 Amiodarone HCl 200 mg Q12HR PO 12/21/24 22:00 UNV Aspirin 81 mg DAILY PO 12/22/24 10:00 UNV Atorvastatin Calcium 80 mg HS PO 12/21/24 22:00 Metoprolol Tartrate 25 mg TID PO 12/21/24 14:00 Amiodarone HCl 200 mg BID PO 12/21/24 22:00 Furosemide 40 mg BIDD IV 12/21/24 18:00 12/21/24 18:52 40 MG Heparin Sodium/ Dextrose 250 ml @ 14 mls/hr [id number] IV 12/21/24 23:00 12/21/24 23:07 14 MLS/HR laboratory and microbiology Laboratory Tests 12/22/24 05:16 Test 12/22/24 05:16 Range/Units Serum Glucose 106 74-106 mg/dL Assessment/Plan Patient is refusing left heart cath, Life Vest, ICD, Heparin, Carvedilol, Aldactone ( at bedside) Patient is 69 year old male who was transferred from [facility] for abnormal troponin. He started feeling palpitation that did not resolve on itself and presented to [facility]. Denies any chest pain. While in [facility], Troponin (regular type) increased from 1.33 to 2.56. His EKG over there revealed tachyarrhythmia (SVT with Abberancy Vs V-tach). In [facility], BNP was at 831, Creat was 2.2, Na was 129 and WBC was 12.9. It is of note that he was in [facility] (hospital) at end of November for Bowel obstruction / Diverticulitis. He is transferred to [facility] for abnormal Troponin. While in [facility] at end of November, Echocardiogram of 12/14/2024 revealed LVEF of 20%, severely dilated LV and reduced RV systolic function. In December 16 ([facility] admission), Creat was 1.66 (down from 2.21) and GFR was 44 (up from 31). Not in acute distress, No JVD, pink mucosa, no Goiter, no Carotid Bruit, not using accessory muscles of breathing. Lungs are clear in auscultation. Cardiac: RR, systolic murmur: 3 out of 6 in apex, positive S3 gallop, no Hepatomegaly, BS is positive, no abdominal tenderness, no mass. No peripheral edema. I could not feel femoral pulses bilaterally, pink and warm bilateral lower ext PMH includes: CAD, s/p CABG (over 10 years ago), Systolic CHF, COPD/Emphysema, DM, hypertension, Hyperlipidemia, CKD, PVD and history of non-compliance. He is active cigarette smoker. Does have recent diagnosis of Bowel Obstruction/Diverticulitis. Echocardiogram (performed in office) of revealed severely reduced left ventricular systolic function and mild valvular regurgitations. Echocardiogram of 12/14/2024 (performed in [facility]) revealed LVEF of 20%, severely dilated LV and reduced RV systolic function WBC: 12.2 - 13.8 Hgb: 12.9 - 12.7 Creat: 1.90 - 1.85 - 1.68 K: 3.9 - 4.9 - 3.9 Trop (high sensitive): 3918 - 3992 - 3495 - 3586 - 2754 - 6418 - 3286 BNP: 960.28 - 1193.40 TSH: 2.85 LDL: 61 U/A: non-revealing chest xry revealed: IMPRESSION: 1. Pulmonary vascular congestion. 2. Cardiomegaly. Renal Ultrasound revealed: IMPRESSION: Multiple echogenic foci in the left kidney measures up to 0.4 cm suggestive of left renal stones. Echogenic bilateral kidneys suggestive of chronic medical renal disease. No hydronephrosis. Bladder Ultrasound revealed: The bladder volume of 683 ml. No focal wall thickening is seen. There is no intraluminal mass or stone. IMPRESSION: Distended bladder with volume = 683ML EKG: NSR, IVCD, Poor R wave progression, LAE and PVCs Tele revealed sinus rhythm with occasion of NSVT Echocardiogram revealed: Four-chamber dilatation was observed. Left ventricle: Left ventricle was dilated with reduced systolic function. LVEF was 5-10%. Diffuse hypokinesis with regional variation was observed. Pseudo normal left ventricular diastolic function was observed. Right ventricle was dilated with reduced systolic function. Both atria were dilated. Aortic valve: Aortic valve was not well visualized. Mild aortic insufficiency was seen. There was aortic sclerosis with no stenosis. There was trace mitral/tricuspid regurgitation. Pulmonary valve was not well visualized. As there was no good tricuspid regurgitation jet, right ventricular systolic pressure could not be estimated. There was no pericardial effusion. IVC was dilated. Patient is 69 year old male who was transferred from [facility] for abnormal trop. Originally presented to [facility] for palpitation. High sensitive trop peaked at 3992. Did have Tachyarrhythmia in [place] (SVT with Abberancy Vs NSVT: images more compatible with SVT) which could have contributed to clinical picture. Does have history of CAD and has had CABG before. Does have history of systolic heart failure. Did not have chest pains. Could it have been demand physiology in patient with systolic heart failure? Could it be demand physiology in patient with tachyarrhythmia? Still, the Troponin peak has been large enough that type 1 physiology is also very likely. Usually in such presentation with above risk factors and history (CAD, s/p CABG), ischemic work up (cardiac catheterization) is considered. Cardiac Catheterization was offered to patient. It is true that patient does have baseline CKD and risk of Cardiac cath to adversely affect kidneys in patients with baseline CKD is more, still, recognizing co-morbidities and risk factors, benefit of ischemic work up is considered more than the risks. Patient verbalized understanding the above (he sounds very well versed with medical terminology also and was asking about his actual troponin number, troponin peak, his creat number, his GFR) and the risks involved with proceeding with or holding off cardiac catheterization. Risks, benefits and alternatives were discussed in detail. At this point, he refused the offer of Cardiac Cath and mentioned that he really is concerned about his kidney function. Does have history of PAD, Emphysema/COPD, DM, hypertension, Hyperlipidemia and non-compliance. Is seen and being followed by Nephrology. Echo revealed systolic heart failure (patient has history of it from before also). Patient is refusing LHC, Life vest, adjustment to medications. Risks were explained, he verbalized understanding ( at bedside) Tachyarrhythmia NSVT SVT Abnormal trop Non-stemi CKD CAD s/p CABG Systolic Heart failure, h/o PAD DM Active cigarette smoker Hypertension Hyperlipidemia Kidney stone non-compliant Cardiac suggestion for management: Manage in Tele Diuresis as per Nephrology Follow up electrolytes and kidney function test and correct abnormalities Change Heparin drip to Lovenox (if patient agrees) ASA High potency statin (if patient agrees) Beta-trevor (Metoprolol Succinate: 50 mg daily: if patient agrees) Amiodarone GDMT for systolic heart failure (as per Nephrology will avoid SACHIN/ARB and Nephrotoxic agents) Patient refused Life Vest and even 'later: ICD' Spirinolactone: 12.5 mg daily if patient agrees Patient is refusing different medications and suggested procedures (LHC/Life vest). Mentions understanding the risks ( at bedside) Nephrology follow up Further evaluation and management as per above and clinical course A total of 55 minutes was spent reviewing the patient record, examining the patient, making a diagnostic and therapeutic plan, discussing this plan with medical personnel, following up on diagnostic studies and following the patient for clinical stability excluding any and all procedures. At least 50% of this time was spent in direct, [id number] contact. Thank you for allowing me to participate in this patient's care. Further recommendations will depend on patient's clinical course. Please do not hesitate to contact me if you have any questions or concerns. This medical document was created using electronic medical record system with [employer] computerized dictation system. Although this document has been carefully reviewed, there may still be some phonetic and typographical errors. These areas are purely typographical due to the imperfection of the software programs, and do not reflect any compromise in the patient's medical care. Plan discussed with: Patient, Spouse (at bedise), Other (nurse) NATALIA STEVENSON MD Dec 22, 2024 08:14
[2024-12-22 08:35] VITALS: BP 105/64; PULSE 91; RESP 18; TEMP 98.4; O2SAT 92
[2024-12-22] MEDS: HEPARIN DRIP/D5W 100UNITS/ML 250 ML IV SCH ×2 (08:45→22:37)
[2024-12-22] MEDS: SPIRONOLACTONE 25 MG TAB PO SCH (10:00)
[2024-12-22] MEDS: ALLOPURINOL 100 MG TAB PO SCH (10:00)
[2024-12-22] MEDS: ENOXAPARIN SOD 80 MG/0.8ML SYRINGE SC SCH (10:00)
[2024-12-22] MEDS ORDERED: FUROSEMIDE 20 MG TAB PO SCH (10:00)
[2024-12-22] MEDS: CIPROFLOXACIN HYDROCHLORIDE 250 MG TAB PO SCH (10:22)
[2024-12-22] MEDS: metroNIDAZOLE 500 MG TAB PO SCH (10:23)
[2024-12-22] MEDS: METOPROLOL SUCCINATE XL 50 MG TAB PO SCH (10:24)
--- NOTE | 2024-12-22 10:29 | DVHPN2 ---
Progress Note Date Seen: Dec 22, 2024 Resident Creating Document: FRANCES CARTAGENA RESIDENT Medical Necessity Reason Pt with a Central, PICC or Fol: No Subjective Review of Systems History of Present Illness 69-year-old male patient and past medical history of CHF, hypertension, CKD, unknown baseline function presented as he was transferred here from [facility] due to elevated troponin, possible NSTEMI. Patient states he was at home when he became diaphoretic, had chest tightness, and pain that radiating to his left arm. He put his home pulse oximeter on and saw that his heart rate was in the 140s. On presenting to the ER, cardiology was consulted and patient refused left heart catheterization as recommended by network contract manager. Patient had elevated creatinine levels and Nephrology was consulted for HIRAL. Patient mentioned that his baseline GFR was 65 seven years ago but does not remember the current GFR. Patient was told by one of the doctors to drink more fluids which patient has been drinking. Patient mentioned that he does not take any antiplatelet therapy including aspirin and Plavix. Patient is currently on oxygen at 2 L nasal cannula. Past medical history CHF, hypertension, CKD, unknown baseline function Past surgical history CABG Medication history Lisinopril Metoprolol Atorvastatin Allergic history No known allergies Past Medical History As described in the HPI Past Surgical History As described in the HPI Social History current smoker Interval Events 12/22/24 pt seen and examined at bedside on home 02 mentioned no active complaints Patient is actively refusing medications: heparin drip, amiodarone, and Lovenox. Patient also refusing angiogram suggested by the network contract manager Objective vital signs Vital Sign Date Time Temp Pulse Resp B/P (MAP) Pulse Ox O2 Delivery O2 Flow Rate FiO2 12/22/24 10:24 91 105/64 12/22/24 08:35 98.4 18 92 98.4 12/21/24 20:30 Nasal Cannula* 2 28 Total Intake and Output 12/21/24 12/21/24 12/22/24 15:00 23:00 07:00 Intake Total 8 ml 1238 ml Output Total 1140 ml Balance 8 ml 98 ml medications Current Medications Medications Dose Ordered Sig/Allyn Route Start Time Stop Time Status Last Admin Dose Admin Acetaminophen/ Hydrocodone Bitart 1 tab Q4HP PRN PO 12/21/24 10:45 Ondansetron HCl 4 mg Q4HP PRN IV 12/21/24 10:45 Docusate Sodium 100 mg BIDPRN PRN PO 12/21/24 10:45 Acetaminophen 650 mg Q6HP PRN PO 12/21/24 10:45 Nitroglycerin 0.4 mg Q5MINP PRN SL 12/21/24 10:45 Morphine Sulfate 2 mg Q30M PRN IV 12/21/24 10:45 Allopurinol 100 mg DAILY PO 12/22/24 10:00 Metoprolol Tartrate 25 mg BID PO 12/21/24 22:00 Cancel Nicotine 1 patch DAILY TD 12/22/24 10:00 12/22/24 10:23 1 PATCH Aspirin 81 mg DAILY PO 12/22/24 10:00 12/22/24 10:24 81 MG Amiodarone HCl 200 mg Q12HR PO 12/21/24 22:00 UNV Aspirin 81 mg DAILY PO 12/22/24 10:00 UNV Atorvastatin Calcium 80 mg HS PO 12/21/24 22:00 Amiodarone HCl 200 mg BID PO 12/21/24 22:00 Furosemide 40 mg BIDD IV 12/21/24 18:00 12/21/24 18:52 40 MG Heparin Sodium/ Dextrose 250 ml @ 11 mls/hr [id number] IV 12/22/24 08:45 Metoprolol Succinate 50 mg DAILY PO 12/22/24 10:00 12/22/24 10:24 50 MG Enoxaparin Sodium 70 mg DAILY SC 12/22/24 10:00 Spironolactone 12.5 mg DAILY PO 12/22/24 10:00 Metronidazole 500 mg TID PO 12/22/24 09:30 12/22/24 10:23 500 MG Ciprofloxacin 250 mg BID PO 12/22/24 10:00 12/22/24 10:22 250 MG Examination Examination General Appearance: Alert, Oriented X3, Cooperative, No acute distress, on oxygen 2 L nasal cannula HEENT: EOMI Respiratory: Clear to auscultation, Normal air movement Cardiovascular: Regular rate, Normal S1, Normal S2, bilateral crackles, scattered wheezing, pedal edema Abdominal: Normal bowel sounds Extremities: No cyanosis, No edema, Normal pulses, No tenderness/swelling Skin: No rashes, No breakdown Neuro: Normal gait, Normal speech, Strength at 5/5 X4 ext, Normal tone, Sensation intact, Cranial nerves 3-12 NL, Reflexes 2+ Psych/Mental Status: Mental status NL, Mood NL laboratory and microbiology Laboratory Tests 12/22/24 05:16 Test 12/22/24 05:16 Range/Units Serum Glucose 106 74-106 mg/dL Labs and/or images reviewed: Labs reviewed by me, Image(s) reviewed by me Problem List/Assessment/Plan Problem List/Assessment/Plan Assessment / Plan # HIRAL on CKD, hemodynamically mediated , likely due to CHF exacerbation, ?component of bladder outlet obstruction -Renal USG : Multiple echogenic foci in the left kidney measures up to 0.4 cm suggestive of left renal stones. Echogenic bilateral kidneys suggestive of chronic medical renal disease. No hydronephrosis. -unknown baseline kidney function -creatinine improved from 1.85 to 1.68 Input/Output 1246/1140 with a net positive of 106 ml FeNa-5.7% Urine protein/creat 0.21 # BPH # left Renal stone # NSTEMI # Acute HfrEF Exacerbation # Constipation # Diverticular disease # hypertension # COPD # Gout # CAD s/p CABG Plan Monitor Kidney Function, and electrolytes Strict I and O urine studies ordered, including urine sodium, urine creatinine, urine Prot/creatinine ration Insert Salazar catheter if Bladder residual volume post voiding is > 180ml, for component of MARC causing Acute kidney Injury Continue diuresis with IV Lasix 40mg BID as patient is volume overloaded. hold SACHIN-/ARB and other nephrotoxic agents As per yesterday discussion, pt mentioned he has not been on any antiplatelet therapy for a long time and did not want LHC done in the hospital and neither wants any medical therapy for NSTEMI/CAD pt was explained in detail about risk of contrast induced nephropathy including possible need for HD post procedure, risks/benefits of Left heart Catheterization, risk of worsening kidney function if pt does not opt for either LHC or medical therapy. pt mentioned that he wants to do his own research before taking any decision. today again, pt was explained about the improvement in kidney function and lower risk of worsening kidney compared to yesterday if patient decides for LHC pt was also explained about the risk of refusing the heparin drip in details. pt and family at bedside fully understood the risk and still refused Patient got aggressive during the conversation and was using abusive words. will start the patient on Colace 100mg BID for constipation. continue Management of NSTEMI as per Cardiology. pt would need outpatient follow up with Nephrology after discharge Case discussion with Dr Martin. Plan discussed with: Patient, Other My Orders My Orders Orders - FRANCES CARTAGENA Procedure Category Date Status Time Document Fluid Input [facility] 12/21/24 In Process And Outpu 13:25 Communication Order ORDERS 12/21/24 Transmitted 18:53 Total Time (mins): 33 ADDENDUM ADDENDUM and son at bedside patient again was hostile cursing and using aggressive language renal function improved slightly discussed in detail renal risk stratification and optimal time for [facility] patient has declined interventions outlined by cardiology at this time renal recommendations are to transition to oral diuretics tomorrow and rec patient takes cardiac meds patient is high risk for adverse cardiac events due to medical noncompliance FRANCES CARTAGENA Dec 22, 2024 10:29 LLUVIA MARTIN MD Dec 22, 2024 21:40
[2024-12-22 13:20] VITALS: BP 115/76; PULSE 80; RESP 16; TEMP 98; O2SAT 98
--- NOTE | 2024-12-22 15:33 | CONS ---
Pharmacy Clinical Information: HEPARIN DRIP PER PRX PROTOCOL Spoke to Rosemary regarding this patient at start of shift. Pt has been refusing Heparin since the APTT results were reported from the 0516 draw. APTT from the 0516 draw was 100.2. Hold heparin for 1 hour, then reduce rate by 300 units per hour to 1100 units per hour (11 mL/hr) per PRX protocol. Pt agreed to resume heparin at 1525, per DYLAN Riley, so drip to resume at 1100 units per hour as specified above at 1525. Rate confirmed by DYLAN Riley. APTT scheduled for 12/22/2024 @ [facility]. MIKE CISNEROS PHARMACIST Dec 22, 2024 15:33
--- NOTE | 2024-12-22 16:09 | DVHPN2 ---
Progress Note Date Seen: Dec 22, 2024 Medical Necessity Reason Pt with a Central, PICC or Fol: No Subjective Patient reports: No new complaints Review of Systems: HEENT:Normal, CVS:Normal, RESPIRATORY:Normal, GI:Normal, :Normal, MSK:Normal, NEURO:Normal Objective vital signs Vital Sign Date Time Temp Pulse Resp B/P (MAP) Pulse Ox O2 Delivery O2 Flow Rate FiO2 12/22/24 13:20 98.0 80 16 115/76 (89) 98 98.0 12/22/24 08:00 Nasal Cannula* 2 28 Total Intake and Output 12/21/24 12/21/24 12/22/24 15:00 23:00 07:00 Intake Total 8 ml 1238 ml Output Total 1140 ml Balance 8 ml 98 ml medications Current Medications Medications Dose Ordered Sig/Allyn Route Start Time Stop Time Status Last Admin Dose Admin Acetaminophen/ Hydrocodone Bitart 1 tab Q4HP PRN PO 12/21/24 10:45 Ondansetron HCl 4 mg Q4HP PRN IV 12/21/24 10:45 Docusate Sodium 100 mg BIDPRN PRN PO 12/21/24 10:45 Acetaminophen 650 mg Q6HP PRN PO 12/21/24 10:45 Nitroglycerin 0.4 mg Q5MINP PRN SL 12/21/24 10:45 Morphine Sulfate 2 mg Q30M PRN IV 12/21/24 10:45 Allopurinol 100 mg DAILY PO 12/22/24 10:00 12/22/24 10:00 100 MG Metoprolol Tartrate 25 mg BID PO 12/21/24 22:00 Cancel Nicotine 1 patch DAILY TD 12/22/24 10:00 12/22/24 10:23 1 PATCH Aspirin 81 mg DAILY PO 12/22/24 10:00 12/22/24 10:24 81 MG Amiodarone HCl 200 mg Q12HR PO 12/21/24 22:00 UNV Aspirin 81 mg DAILY PO 12/22/24 10:00 UNV Atorvastatin Calcium 80 mg HS PO 12/21/24 22:00 Amiodarone HCl 200 mg BID PO 12/21/24 22:00 12/22/24 10:00 200 MG Heparin Sodium/ Dextrose 250 ml @ 11 mls/hr [id number] IV 12/22/24 08:45 12/22/24 08:45 11 MLS/HR Metoprolol Succinate 50 mg DAILY PO 12/22/24 10:00 12/22/24 10:24 50 MG Enoxaparin Sodium 70 mg DAILY SC 12/22/24 10:00 12/22/24 10:00 70 MG Spironolactone 12.5 mg DAILY PO 12/22/24 10:00 12/22/24 10:00 12.5 MG Metronidazole 500 mg TID PO 12/22/24 09:30 12/22/24 13:41 500 MG Ciprofloxacin 250 mg BID PO 12/22/24 10:00 12/22/24 10:22 250 MG Furosemide 40 mg DAILY IV 12/23/24 10:00 Examination: GENERAL:Normal, HEENT:Normal, NECK:Normal, LUNGS:Normal, LUNGS:Abnormal (on oxygen, rales), CVS:Normal, ABDOMEN:Normal, MSK:Normal, SKIN:Normal, NEURO:Normal, :Normal laboratory and microbiology Laboratory Tests 12/22/24 05:16 Test 12/22/24 05:16 Range/Units Serum Glucose 106 74-106 mg/dL Problem List/Assessment/Plan Problem List/Assessment/Plan #1 acute resp failure: cont oxygen #2 acute systolic heart failure: lasix iv #3 acute mi: refused mi, iv heparin #4 htn #5 hyperlipidemia #6 copd #7 svt #8 ckd stage 3 #9 renal stones #10 tobacco abuse- nicotine patch, advised to quit- time spent 11 mins #11 cad s/p cabg #12 pvd advance care planning- full code- time spent 19 mins Plan discussed with: Patient, Spouse My Orders My Orders Orders - RAMIREZ DOW MD Procedure Category Date Status Time * Tax Adjuster CONS 12/22/24 Transmitted Consult Pt Request For Service PT 12/22/24 Transmitted 16:00 Basic Metabolic Panel LAB 12/23/24 Verified 06:00 Complete Blood Count LAB 12/23/24 Verified 06:00 Date of Service: Dec 22, 2024 Billing Provider: RAMIREZ DOW MD Common Visit Codes: 36561-[id number] INP/OBS CARE(HIGH) Secondary Visit Codes: 99014-SLXBA CHNG SMOKING >10MIN, 20971-[id number] CARE PLAN 30 MINUTES RAMIREZ DOW MD Dec 22, 2024 16:09
[2024-12-22 16:42] VITALS: BP 112/74; PULSE 75; RESP 16; TEMP 98.2; O2SAT 95
[2024-12-22] MEDS: DOCUSATE SOD 100 MG CAP PO ONE (19:24)
[2024-12-22 20:00] VITALS: PULSE 74; PULSE 78; RESP 18; O2SAT 96
[2024-12-22 21:00] VITALS: BP 115/67; PULSE 79; RESP 17; TEMP 98.3; O2SAT 98
[2024-12-22] MEDS: DOCUSATE SOD 100 MG CAP PO SCH (21:42)
[2024-12-22 21:54] LABS: INR 1.09 (0.9-1.15); Partial Thromboplastin Time 36.9 SEC (24.5-34.5); Prothrombin Time 11.5 sec (9.3-11.8)
[2024-12-23 01:00] VITALS: BP 132/75; PULSE 79; RESP 17; TEMP 97.8; O2SAT 94
[2024-12-23 04:29] LABS: Hematocrit 36.4 % (41.0-53.0); Hemoglobin 12.0 g/dL (13.5-17.5); Mean Corpuscular Hemoglobin 29.8 pg (28.0-32.0); Mean Corpuscular Volume 90.3 fL (80.0-100.0); Nucleated Red Blood Cells % 0.0 %
[2024-12-23 04:44] LABS: Anion Gap 7 (5-15); Carbon Dioxide 26 mmol/L (20-31); Potassium 3.8 mmol/L (3.5-5.1); Sodium 141 mmol/L (136-145)
[2024-12-23 04:50] LABS: Calcium 8.7 mg/dL (8.7-10.4); Chloride 108 mmol/L (98-107); Glucose 111 mg/dL (74-106)
[2024-12-23 05:00] VITALS: BP 124/77; PULSE 81; RESP 17; TEMP 98.3; O2SAT 92
[2024-12-23 05:15] LABS: INR 1.07 (0.9-1.15); Partial Thromboplastin Time 29.3 SEC (24.5-34.5); Prothrombin Time 11.3 sec (9.3-11.8)
[2024-12-23 05:30] LABS: BUN/Creatinine Ratio 13.7 (10.0-20.0); Blood Urea Nitrogen 21 mg/dL (9-23)
--- NOTE | 2024-12-23 06:12 | DVHPN2 ---
Progress Note - Dictate Date Seen: Dec 23, 2024 Medical Necessity Reason Pt with a Central, PICC or Fol: No vital signs Vital Sign Date Time Temp Pulse Resp B/P (MAP) Pulse Ox O2 Delivery O2 Flow Rate FiO2 12/23/24 05:00 98.3 81 17 124/77 (93) 92 98.3 12/22/24 20:00 Nasal Cannula* 2 28 Total Intake and Output 12/22/24 12/22/24 12/23/24 15:00 23:00 07:00 Intake Total 533 ml 650 ml Balance 533 ml 650 ml medications Current Medications Medications Dose Ordered Sig/Allyn Route Start Time Stop Time Status Last Admin Dose Admin Acetaminophen/ Hydrocodone Bitart 1 tab Q4HP PRN PO 12/21/24 10:45 Ondansetron HCl 4 mg Q4HP PRN IV 12/21/24 10:45 Acetaminophen 650 mg Q6HP PRN PO 12/21/24 10:45 Nitroglycerin 0.4 mg Q5MINP PRN SL 12/21/24 10:45 Morphine Sulfate 2 mg Q30M PRN IV 12/21/24 10:45 Allopurinol 100 mg DAILY PO 12/22/24 10:00 12/22/24 10:00 100 MG Metoprolol Tartrate 25 mg BID PO 12/21/24 22:00 Cancel Nicotine 1 patch DAILY TD 12/22/24 10:00 12/22/24 10:23 1 PATCH Aspirin 81 mg DAILY PO 12/22/24 10:00 12/22/24 10:24 81 MG Amiodarone HCl 200 mg Q12HR PO 12/21/24 22:00 UNV Aspirin 81 mg DAILY PO 12/22/24 10:00 UNV Atorvastatin Calcium 80 mg HS PO 12/21/24 22:00 Amiodarone HCl 200 mg BID PO 12/21/24 22:00 12/22/24 21:41 200 MG Metoprolol Succinate 50 mg DAILY PO 12/22/24 10:00 12/22/24 10:24 50 MG Enoxaparin Sodium 70 mg DAILY SC 12/22/24 10:00 12/22/24 10:00 70 MG Spironolactone 12.5 mg DAILY PO 12/22/24 10:00 12/22/24 10:00 12.5 MG Metronidazole 500 mg TID PO 12/22/24 09:30 12/22/24 21:41 500 MG Ciprofloxacin 250 mg BID PO 12/22/24 10:00 12/22/24 21:41 250 MG Furosemide 40 mg DAILY IV 12/23/24 10:00 Docusate Sodium 100 mg BID PO 12/22/24 22:00 Heparin Sodium/ Dextrose 250 ml @ 13 mls/hr [id number] IV 12/22/24 22:15 12/22/24 22:37 13 MLS/HR laboratory and microbiology Laboratory Tests 12/23/24 04:01 Test 12/23/24 04:01 Range/Units Serum Glucose 111 H 74-106 mg/dL Assessment/Plan Patient is refusing left heart cath, Life Vest, ICD. He is hemodynamically stable and is asymptomatic. Patient is 69 year old male who was transferred from [facility] for abnormal troponin. He started feeling palpitation that did not resolve on itself and presented to [facility]. Denies any chest pain. While in [facility], Troponin (regular type) increased from 1.33 to 2.56. His EKG over there revealed tachyarrhythmia (SVT with Abberancy Vs V-tach). In [facility], BNP was at 831, Creat was 2.2, Na was 129 and WBC was 12.9. It is of note that he was in [facility] (hospital) at end of November for Bowel obstruction / Diverticulitis. He is transferred to [facility] for abnormal Troponin. While in [facility] at end of November, Echocardiogram of 12/14/2024 revealed LVEF of 20%, severely dilated LV and reduced RV systolic function. In December 16 ([facility] admission), Creat was 1.66 (down from 2.21) and GFR was 44 (up from 31). Not in acute distress, No JVD, pink mucosa, no Goiter, no Carotid Bruit, not using accessory muscles of breathing. Lungs are clear in auscultation. Cardiac: RR, systolic murmur: 3 out of 6 in apex, positive S3 gallop, no Hepatomegaly, BS is positive, no abdominal tenderness, no mass. No peripheral edema. I could not feel femoral pulses bilaterally, pink and warm bilateral lower ext PMH includes: CAD, s/p CABG (over 10 years ago), Systolic CHF, COPD/Emphysema, DM, hypertension, Hyperlipidemia, CKD, PVD and history of non-compliance. He is active cigarette smoker. Does have recent diagnosis of Bowel Obstruction/Diverticulitis. Echocardiogram (performed in office) of revealed severely reduced left ventricular systolic function and mild valvular regurgitations. Echocardiogram of 12/14/2024 (performed in [facility]) revealed LVEF of 20%, severely dilated LV and reduced RV systolic function WBC: 12.2 - 13.8 - 12.3 Hgb: 12.9 - 12.7 - 12.0 Creat: 1.90 - 1.85 - 1.68 - 1.53 K: 3.9 - 4.9 - 3.9 - 3.8 Trop (high sensitive): 3918 - 3992 - 3495 - 3586 - 3294 - 3127 - 2659 BNP: 960.28 - 1193.40 TSH: 2.85 LDL: 61 U/A: non-revealing chest xry revealed: IMPRESSION: 1. Pulmonary vascular congestion. 2. Cardiomegaly. Renal Ultrasound revealed: IMPRESSION: Multiple echogenic foci in the left kidney measures up to 0.4 cm suggestive of left renal stones. Echogenic bilateral kidneys suggestive of chronic medical renal disease. No hydronephrosis. Bladder Ultrasound revealed: The bladder volume of 683 ml. No focal wall thickening is seen. There is no intraluminal mass or stone. IMPRESSION: Distended bladder with volume = 683ML EKG: NSR, IVCD, Poor R wave progression, LAE and PVCs Tele revealed sinus rhythm with occasion of NSVT Echocardiogram revealed: Four-chamber dilatation was observed. Left ventricle: Left ventricle was dilated with reduced systolic function. LVEF was 5-10%. Diffuse hypokinesis with regional variation was observed. Pseudo normal left ventricular diastolic function was observed. Right ventricle was dilated with reduced systolic function. Both atria were dilated. Aortic valve: Aortic valve was not well visualized. Mild aortic insufficiency was seen. There was aortic sclerosis with no stenosis. There was trace mitral/tricuspid regurgitation. Pulmonary valve was not well visualized. As there was no good tricuspid regurgitation jet, right ventricular systolic pressure could not be estimated. There was no pericardial effusion. IVC was dilated. Patient is 69 year old male who was transferred from [facility] for abnormal trop. Originally presented to [facility] for palpitation. High sensitive trop peaked at 3992. Did have Tachyarrhythmia in [place] (SVT with Abberancy Vs NSVT: images more compatible with SVT) which could have contributed to clinical picture. Does have history of CAD and has had CABG before. Does have history of systolic heart failure. Did not have chest pains. Could it have been demand physiology in patient with systolic heart failure? Could it be demand physiology in patient with tachyarrhythmia? Still, the Troponin peak has been large enough that type 1 physiology is also very likely. Usually in such presentation with above risk factors and history (CAD, s/p CABG), ischemic work up (cardiac catheterization) is considered. Cardiac Catheterization was offered to patient. It is true that patient does have baseline CKD and risk of Cardiac cath to adversely affect kidneys in patients with baseline CKD is more, still, recognizing co-morbidities and risk factors, benefit of ischemic work up is considered more than the risks. Patient verbalized understanding the above (he sounds very well versed with medical terminology also and was asking about his actual troponin number, troponin peak, his creat number, his GFR) and the risks involved with proceeding with or holding off cardiac catheterization. Risks, benefits and alternatives were discussed in detail. At this point, he refused the offer of Cardiac Cath and mentioned that he really is concerned about his kidney function. Does have history of PAD, Emphysema/COPD, DM, hypertension, Hyperlipidemia and non-compliance. Is seen and being followed by Nephrology. Echo revealed systolic heart failure (patient has history of it from before also). Patient is refusing LHC, Life vest, adjustment to medications. Risks were explained, he verbalized understanding. Still refuses LHC. Still wants to think about life vest and said will decide as outpatient. Tachyarrhythmia NSVT SVT Abnormal trop Non-stemi CKD CAD s/p CABG Systolic Heart failure, h/o PAD DM Active cigarette smoker Hypertension Hyperlipidemia Kidney stone non-compliant Cardiac suggestion for management: Manage in Tele Diuresis as per Nephrology Follow up electrolytes and kidney function test and correct abnormalities On Lovenox ASA Add Plavix High potency statin Beta-trevor (Metoprolol Succinate: 50 mg daily) Amiodarone GDMT for systolic heart failure (as per Nephrology will avoid SACHIN/ARB and Nephrotoxic agents) Patient again refused Life Vest and even 'later: ICD' Spirinolactone: 12.5 mg daily Patient is refusing different medications and suggested procedures (LHC/Life vest). Mentions understanding the risks Nephrology follow up Cardiac thornton, can be followed as outpatient Further evaluation and management as per above and clinical course A total of 55 minutes was spent reviewing the patient record, examining the patient, making a diagnostic and therapeutic plan, discussing this plan with medical personnel, following up on diagnostic studies and following the patient for clinical stability excluding any and all procedures. At least 50% of this time was spent in direct, [id number] contact. Thank you for allowing me to participate in this patient's care. Further recommendations will depend on patient's clinical course. Please do not hesitate to contact me if you have any questions or concerns. This medical document was created using electronic medical record system with [employer] computerized dictation system. Although this document has been carefully reviewed, there may still be some phonetic and typographical errors. These areas are purely typographical due to the imperfection of the software programs, and do not reflect any compromise in the patient's medical care. Plan discussed with: Patient, Other (nurse) NATALIA STEVENSON MD Dec 23, 2024 06:11
[2024-12-23 08:00] VITALS: PULSE 78; PULSE 81; RESP 18; O2SAT 94
[2024-12-23 09:28] VITALS: BP 113/75; PULSE 81; RESP 18; TEMP 97.8; O2SAT 94
[2024-12-23] MEDS: FUROSEMIDE 40 MG/4 ML VIAL IV SCH (10:33)
[2024-12-23] MEDS: CLOPIDOGREL BISULFATE 75 MG TAB PO SCH (10:35)
--- NOTE | 2024-12-23 13:25 | DVHPN2 ---
Progress Note Date Seen: Dec 23, 2024 Resident Creating Document: FRANCES CARTAGENA RESIDENT Medical Necessity Reason Pt with a Central, PICC or Fol: No Subjective Review of Systems 69-year-old male patient and past medical history of CHF, hypertension, CKD, unknown baseline function presented as he was transferred here from [facility] due to elevated troponin, possible NSTEMI. Patient states he was at home when he became diaphoretic, had chest tightness, and pain that radiating to his left arm. He put his home pulse oximeter on and saw that his heart rate was in the 140s. On presenting to the ER, cardiology was consulted and patient refused left heart catheterization as recommended by confectionery cooker. Patient had elevated creatinine levels and Nephrology was consulted for HIRAL. Patient mentioned that his baseline GFR was 65 seven years ago but does not remember the current GFR. Patient was told by one of the doctors to drink more fluids which patient has been drinking. Patient mentioned that he does not take any antiplatelet therapy including aspirin and Plavix. Patient is currently on oxygen at 2 L nasal cannula. Past medical history CHF, hypertension, CKD, unknown baseline function Past surgical history CABG Medication history Lisinopril Metoprolol Atorvastatin Allergic history No known allergies Past Medical History As described in the HPI Past Surgical History As described in the HPI Social History current smoker Interval Events Objective vital signs Vital Sign Date Time Temp Pulse Resp B/P (MAP) Pulse Ox O2 Delivery O2 Flow Rate FiO2 12/23/24 10:34 81 113/75 12/23/24 09:28 97.8 18 94 97.8 12/23/24 08:00 Nasal Cannula* 2 28 Total Intake and Output 12/22/24 12/22/24 12/23/24 15:00 23:00 07:00 Intake Total 533 ml 650 ml Balance 533 ml 650 ml medications Current Medications Medications Dose Ordered Sig/Allyn Route Start Time Stop Time Status Last Admin Dose Admin Acetaminophen/ Hydrocodone Bitart 1 tab Q4HP PRN PO 12/21/24 10:45 Ondansetron HCl 4 mg Q4HP PRN IV 12/21/24 10:45 Acetaminophen 650 mg Q6HP PRN PO 12/21/24 10:45 Nitroglycerin 0.4 mg Q5MINP PRN SL 12/21/24 10:45 Morphine Sulfate 2 mg Q30M PRN IV 12/21/24 10:45 Allopurinol 100 mg DAILY PO 12/22/24 10:00 12/23/24 10:35 100 MG Metoprolol Tartrate 25 mg BID PO 12/21/24 22:00 Cancel Nicotine 1 patch DAILY TD 12/22/24 10:00 12/23/24 10:36 1 PATCH Aspirin 81 mg DAILY PO 12/22/24 10:00 12/22/24 10:24 81 MG Amiodarone HCl 200 mg Q12HR PO 12/21/24 22:00 UNV Aspirin 81 mg DAILY PO 12/22/24 10:00 UNV Atorvastatin Calcium 80 mg HS PO 12/21/24 22:00 Amiodarone HCl 200 mg BID PO 12/21/24 22:00 12/23/24 10:34 200 MG Metoprolol Succinate 50 mg DAILY PO 12/22/24 10:00 12/23/24 10:34 50 MG Enoxaparin Sodium 70 mg DAILY SC 12/22/24 10:00 12/23/24 10:35 70 MG Spironolactone 12.5 mg DAILY PO 12/22/24 10:00 12/23/24 10:34 12.5 MG Metronidazole 500 mg TID PO 12/22/24 09:30 12/23/24 06:35 500 MG Ciprofloxacin 250 mg BID PO 12/22/24 10:00 12/23/24 10:34 250 MG Furosemide 40 mg DAILY IV 12/23/24 10:00 12/23/24 10:33 40 MG Docusate Sodium 100 mg BID PO 12/22/24 22:00 12/23/24 10:34 100 MG Heparin Sodium/ Dextrose 250 ml @ 13 mls/hr [id number] IV 12/22/24 22:15 Hold 12/22/24 22:37 13 MLS/HR Clopidogrel Bisulfate 75 mg DAILY PO 12/23/24 10:00 12/23/24 10:35 75 MG Examination Examination General Appearance: Alert, Oriented X3, Cooperative, No acute distress, on oxygen 2 L nasal cannula HEENT: EOMI Respiratory: Clear to auscultation, Normal air movement Cardiovascular: Regular rate, Normal S1, Normal S2, bilateral crackles, scattered wheezing, pedal edema Abdominal: Normal bowel sounds Extremities: No cyanosis, No edema, Normal pulses, No tenderness/swelling Skin: No rashes, No breakdown Neuro: Normal gait, Normal speech, Strength at 5/5 X4 ext, Normal tone, Sensation intact, Cranial nerves 3-12 NL, Reflexes 2+ Psych/Mental Status: Mental status NL, Mood NL laboratory and microbiology Laboratory Tests 12/23/24 04:01 Test 12/23/24 04:01 Range/Units Serum Glucose 111 H 74-106 mg/dL Labs and/or images reviewed: Labs reviewed by me, Image(s) reviewed by me Problem List/Assessment/Plan Problem List/Assessment/Plan Assessment / Plan # HIRAL on CKD, hemodynamically mediated , likely due to CHF exacerbation, ?component of bladder outlet obstruction -Renal USG : Multiple echogenic foci in the left kidney measures up to 0.4 cm suggestive of left renal stones. Echogenic bilateral kidneys suggestive of chronic medical renal disease. No hydronephrosis. -unknown baseline kidney function -creatinine improved from 1.68 to 1.53 FeNa-5.7% Urine protein/creat 0.21 # BPH # left Renal stone # NSTEMI # Acute HfrEF Exacerbation # Constipation # Diverticular disease # hypertension # COPD # Gout # CAD s/p CABG Plan Monitor Kidney Function, and electrolytes Strict I and O urine studies ordered, including urine sodium, urine creatinine, urine Prot/creatinine ration Insert Salazar catheter if Bladder residual volume post voiding is > 180ml, for component of MARC causing Acute kidney Injury Continue diuresis with IV Lasix 40mg BID as patient is volume overloaded. hold SACHIN-/ARB and other nephrotoxic agents As per Thursday discussion, pt mentioned he has not been on any antiplatelet therapy for a long time and did not want LHC done in the hospital and neither wants any medical therapy for NSTEMI/CAD pt was explained in detail about risk of contrast induced nephropathy including possible need for HD post procedure, risks/benefits of Left heart Catheterization, risk of worsening kidney function if pt does not opt for either LHC or medical therapy. pt mentioned that he wants to do his own research before taking any decision. yesterday again, pt was explained about the improvement in kidney function and lower risk of worsening kidney compared to yesterday if patient decides for LHC pt was also explained about the risk of refusing the heparin drip in details. pt and family at bedside fully understood the risk and still refused Patient got aggressive during the conversation and was using abusive words. continue Colace 100mg BID for constipation. improving kidney function, continue diuresis continue Management of NSTEMI as per Cardiology. pt would need outpatient follow up with Nephrology after discharge Case discussion with Dr Martin. Plan discussed with: Patient, Other My Orders My Orders Orders - FRANCES CARTAGENA Procedure Category Date Status Time Docusate Sodium PHA 12/22/24 In Process Capsule (Colace 22:00 FRANCES CARTAGENA RESIDENT Dec 23, 2024 13:25
[2024-12-23 14:41] VITALS: BP 131/74; PULSE 79; RESP 18; TEMP 97.9; O2SAT 92
[2024-12-23] MEDS ORDERED: METO-6 PO (15:22)
[2024-12-23] MEDS ORDERED: CLOP75TA70 PO (15:22)
[2024-12-23] MEDS ORDERED: ATOR20TA50 PO (15:22)
[2024-12-23] MEDS ORDERED: ASPI-325 PO (15:22)
[2024-12-23] MEDS ORDERED: AMIO200T13 PO (15:22)
[2024-12-23] MEDS ORDERED: SPIR25TA PO (15:22)
[2024-12-23 15:31] VITALS: BP 131/74; PULSE 79; RESP 18; TEMP 97.9; O2SAT 92
--- NOTE | 2024-12-23 15:34 | DVHDS2 ---
Discharge Summary Date of Admission Dec 21, 2024 at 10:33 Date of Discharge: Dec 23, 2024 Admitting Diagnosis # BPH # left Renal stone # ckd stage 3 # NSTEMI # Acute CA # Acute HfrEF Exacerbation # Constipation # Diverticular disease # hypertension # COPD # Gout # CAD s/p CABG # tobacco abuse # PVD Labs/Diagnostic Data: Laboratory Results Test 12/23/24 04:01 12/22/24 05:16 12/22/24 01:40 12/21/24 20:43 White Blood Count 12.3 10^3/uL (4.4-10.8) Red Blood Count 4.03 10^6/uL (4.5-5.90) Hemoglobin 12.0 g/dL (13.5-17.5) Hematocrit 36.4 % (41.0-53.0) Mean Corpuscular Volume 90.3 fL (80.0-100.0) Mean Corpuscular Hemoglobin 29.8 pg (28.0-32.0) Mean Corpuscular Hemoglobin Concent 33.0 g/dL (32.0-36.0) Red Cell Distribution Width 14.6 % (11.8-14.3) Platelet Count 383 10^3/uL (140-450) Mean Platelet Volume 9.1 fL (6.9-10.8) Neutrophils (%) (Auto) 79.1 % (37.0-80.0) Lymphocytes (%) (Auto) 9.6 % (10.0-50.0) Monocytes (%) (Auto) 8.3 % (0.0-12.0) Eosinophils (%) (Auto) 2.5 % (0.0-7.0) Basophils (%) (Auto) 0.5 % (0.0-2.0) Neutrophils # (Auto) 9.7 10 ^3/uL (1.6-8.6) Lymphocytes # (Auto) 1.2 10 ^3/uL (0.4-5.4) Monocytes # (Auto) 1.0 10 ^3/uL (0-1.3) Eosinophils # (Auto) 0.3 10 ^3/uL (0-0.8) Basophils # (Auto) 0.1 10 ^3/uL (0-0.2) Nucleated Red Blood Cells 0.0 % Prothrombin Time 11.3 sec (9.3-11.8) Prothrombin Time INR 1.07 (0.9-1.15) Activated Partial Thromboplast Time 29.3 SEC (24.5-34.5) Sodium Level 141 mmol/L (136-145) Potassium Level 3.8 mmol/L (3.5-5.1) Chloride Level 108 mmol/L (98-107) Carbon Dioxide Level 26 mmol/L (20-31) Anion Gap 7 (5-15) Blood Urea Nitrogen 21 mg/dL (9-23) Creatinine 1.53 mg/dL (0.700-1.30) Glomerular Filtration Rate Calc 49 mL/min (>90) BUN/Creatinine Ratio 13.7 (10.0-20.0) Serum Glucose 111 mg/dL (74-106) Calcium Level 8.7 mg/dL (8.7-10.4) Magnesium Level 2.0 mg/dL (1.6-2.6) Total Bilirubin 0.3 mg/dL (0.2-1.0) Aspartate Amino Transferase (AST) 21 U/L (13-40) Alanine Aminotransferase (ALT) < 9 U/L (7-40) Alkaline Phosphatase 75 U/L (46-116) Total Protein 5.8 g/dL (5.7-8.2) Albumin 3.5 g/dL (3.2-4.8) Urine Color Light-yellow (Yellow) Urine Clarity Clear (Clear) Urine pH 5.0 (5.0-9.0) Urine Specific [place] 1.008 (1.001-1.035) Urine Protein Negative (Negative) Urine Ketones Negative (Negative) Urine Blood Negative /uL (Negative) Urine Nitrite Negative (Negative) Urine Bilirubin Negative (Negative) Urine Urobilinogen Normal mg/dL (Negative) Urine Leukocyte Esterase Negative /uL (Negative) Urine RBC None seen /hpf (0 - 3) Urine Microscopic WBC 3 /HPF (0-3) Urine Squamous Epithelial Cells None seen /hpf (<5) Urine Bacteria None seen /hpf (None Seen) Urine Creatinine 41.77 mg/dL (30.0-125.0) Urine Protein/Creatinine Ratio 0.21 Urine Sodium 85 mmol/L (40-220) Urine Glucose Normal mg/dL (Normal) Urine Total Protein 8.7 mg/dL (1-14) Troponin I High Sensitivity 2659 ng/L (</=54) Test 12/21/24 12:30 12/21/24 09:12 12/21/24 06:17 B-Type Natriuretic Peptide 1193.40 pg/mL (0-100) Triglycerides Level 121 mg/dL (< 150) Cholesterol Level 107 mg/dL (< 200) LDL Cholesterol 61 mg/dL (< 100) HDL Cholesterol 20 mg/dL (40-59) Thyroid Stimulating Hormone (TSH) 2.85 uIU/mL (0.55-4.78) Hemoglobin A1c < 3.8 % A1C (<5.7) Other Laboratory Tests 12/23/24 04:01 Brief Hx & Hospital Course: Micha is a 69-year-old male with past medical history of CHF, hypertension, COPD, gout, and open heart surgery about 12 years ago, who was transferred here from [facility] due to elevated troponin, possible NSTEMI. Patient states he was at home when he became diaphoretic, had chest tightness, and pain that radiating to his left arm. He put his home pulse oximeter on and saw that his heart rate was in the 140s. He then took his blood pressure and it showed his heart rate in the 150's prompting him to go to the hospital. While at [facility] his troponin came back elevated prompting them to transfer him here for higher level of care. Patient had elevated chronic of 3992. Patient has a risk for type 1 MRI. Patient has CKD ankle worsen CKD for DVT. At emmanuel of a single workup recommended cardiac catheterization. Patient understood all risks and refused cardiac cath and want to get stronger before get cardiac cath. patient is stable per caridology and Nephrology for outpatient follow up. Patient is stable to be discharged home with outpatient Cardiology Nephrology and PCP follow up Condition at Discharge: Good Final Diagnosis/Problems List [facility]I [facility]AL Discharge Disposition: Home Discharge Instruct/Medications Diet: Cardiac 2g Na,low cholest Activity: No Restrictions, As Tolerated Follow Up/Referral: Follow up with Cardiology in 1 week. Follow up wit hnephrology in 1 week. Scheduled Allopurinol (Allopurinol), 1 TAB PO DAILY, (Reported) Furosemide (Furosemide), 1 TAB PO DAILY, (Reported) Lisinopril (Lisinopril), 1 TAB PO BID, (Reported) Metoprolol Tartrate (Lopressor), 25 MG PO BID, (Reported) Nicotine (Nicotine Transdermal Syst), 1 PATCH TOP DAILY, (Reported) Miscellaneous Medications Albuterol Sulfate (Ventolin Mdi), INH, (Reported) Discharge Statement: "Patient was advised to return to the ER or call 911 if any headaches, dizziness, shortness of breath, chest pain, abdominal pain, bleeding, fevers, or worsening of medical condition. Patient was counseled about treatment plan, medications, possible side effects, patientverbalized understanding. All questions were answered to the best of my ability. This discharge took greater then 30 minutes in planning, reviewing documentation, counseling the patient, and discussing with other team members." ASSESSMENT ASSESSMENT Assessment [facility]AL Date of Service: Dec 23, 2024 Billing Provider: GILBERTO KIM MD Common Visit Codes: 50506-XPW/OBS DISCH DAY >30min GILBERTO KIM MD Dec 23, 2024 15:34
[2024-12-23] MEDS ORDERED: FURO1TAB31 PO (15:36)
[2024-12-23] MEDS ORDERED: NICO14DI9 TD (15:53)
[2024-12-24] MEDS ORDERED: NICO14DI9 TD (15:54)
[2024-12-24] MEDS ORDERED: AMIO200T13 PO (15:54)
[2024-12-24] MEDS ORDERED: SPIR25TA PO (15:54)
[2024-12-24] MEDS ORDERED: FURO20TA4 PO (15:54)
[2024-12-24] MEDS ORDERED: ASPI-325 PO (15:54)
[2024-12-24] MEDS ORDERED: ATOR20TA50 PO (15:54)
[2024-12-24] MEDS ORDERED: METO-6 PO (15:54)
== END 2024-12-23 16:09 | disposition home or self-care (01) | DRG 280 ==
LOC: EDSEX 05:32 → ER 05:32 → EDBD 05:32 → OVERFLOW 10:33 → TELE-WESTW 18:11
PROVIDERS: ADMIT Internal Medicine; ATTEND Internal Medicine
DX: I21.4 Non-ST elevation (NSTEMI) myocardial infarction (principal); I50.23 Acute on chronic systolic (congestive) heart failure; N17.0 Acute kidney failure with tubular necrosis; I47.20 Ventricular tachycardia, unspecified; I47.10 Supraventricular tachycardia, unspecified; I13.0 Hypertensive heart and chronic kidney disease with heart failure and stage 1 through stage 4 chronic kidney disease, or unspecified chronic kidney disease; E86.0 Dehydration; Z95.1 Presence of aortocoronary bypass graft; N18.30 Chronic kidney disease, stage 3 unspecified; E11.51 Type 2 diabetes mellitus with diabetic peripheral angiopathy without gangrene; I70.0 Atherosclerosis of aorta; E11.22 Type 2 diabetes mellitus with diabetic chronic kidney disease; J44.9 Chronic obstructive pulmonary disease, unspecified; M10.9 Gout, unspecified; Z91.199 Patient's noncompliance with other medical treatment and regimen due to unspecified reason; I25.10 Atherosclerotic heart disease of native coronary artery without angina pectoris; E78.5 Hyperlipidemia, unspecified; K59.00 Constipation, unspecified; N40.0 Benign prostatic hyperplasia without lower urinary tract symptoms; N32.0 Bladder-neck obstruction; N20.0 Calculus of kidney; F17.210 Nicotine dependence, cigarettes, uncomplicated; Z71.6 Tobacco abuse counseling; Z79.899 Other long term (current) drug therapy; Z90.49 Acquired absence of other specified parts of digestive tract; Z53.29 Procedure and treatment not carried out because of patient's decision for other reasons
CPT/HCPCS: 36415; 71045; 76775; 76857; 80048; 80053; 80061; 81001; 82570; 83036; 83735; 83880; 84156; 84300; 84443; 84484; 85025; 85610; 85730; 93005; 93306; 96374; 96375; 99291; G0378; J2405